=== PATIENT | female | born 1975 | race Hispanic/Latino ===

== ENCOUNTER 2018-05-22 18:08 | Emergency (ER) | payer SELFPAY ==
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
[2018-05-22 19:33] LABS: Urine Blood 1+ (NEG); Urine Glucose NEGATIVE (NEG); Urine Protein NEGATIVE (NEG); Urine Specific Gravity <1.005 (1.005-1.030); Urine pH 5.5 (5.0-7.0)
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
[2018-05-22] MEDS ORDERED: CYCLOBENZAPRINE 10 MG TAB ONE (20:02)
[2018-05-22] MEDS ORDERED: HYDROCODONE/APAP 5/325 MG TAB ONE (20:02)
[2018-05-22] MEDS ORDERED: KETOROLAC 30 MG/ML INJ ONE (20:02)
== END 2018-05-22 20:11 | disposition home or self-care (01) ==
LOC: ER 18:08
DX: S39.012A Strain of muscle, fascia and tendon of lower back, initial encounter (principal); S16.1XXA Strain of muscle, fascia and tendon at neck level, initial encounter; V43.53XA Car driver injured in collision with pick-up truck in traffic accident, initial encounter; Y93.9 Activity, unspecified; Y92.410 Unspecified street and highway as the place of occurrence of the external cause
CPT/HCPCS: 36415; 72125; 81003; 84703; 96372; 99284

== ENCOUNTER 2023-05-27 04:20 | Emergency (ER) | payer SELFPAY ==
[2023-05-27 04:39] LABS: Absolute Lymphocytes (CBC) 1.8 K/uL (0.7-4.9); Hematocrit 37.3 % (36.0-45.0); Lymphocytes % 24.2 % (15.3-44.8); MCV 94.1 fL (80-100); MPV 9.8 fL (7.6-11.3); Platelets 260 thou/uL (152-406); RBC Red Blood Cell Count 3.96 M/uL (3.86-4.86)
[2023-05-27 04:46] LABS: Protime INR 0.99
[2023-05-27 05:02] LABS: ALT/SGPT 23 U/L (13-56); AST/SGOT 15 U/L (15-37); Albumin 3.6 g/dL (3.4-5.0); Alkaline Phosphatase 47 U/L (45-117); BUN Blood Urea Nitrogen 10 mg/dL (7-18); Bicarbonate 19 mEq/L (21-32); Bilirubin Total 0.3 mg/dL (0.2-1.0); Glomerular Filtration Rate 113 ml/min (=/>90); Glucose Level 226 mg/dL (74-106); Potassium 3.6 mEq/L (3.5-5.1); Protein, Total 7.7 g/dL (6.4-8.2); Sodium Level 141 mEq/L (136-145)
[2023-05-27 05:03] LABS: Bilirubin Direct < 0.1 mg/dL (0-0.2); Bilirubin Indirect, Calculated ND mg/dL (0.2-0.8)
[2023-05-27 05:07] LABS: Specific Gravity 1.009 (1.005-1.030); Urine Bilirubin NEGATIVE (Negative); Urine Blood Negative (Negative); Urine Clarity Clear (Clear); Urine Color Colorless (Yellow); Urine Glucose 3+ (Negative); Urine Protein NEGATIVE (Negative); Urine Urobilinogen Normal (Normal)
[2023-05-27 05:08] LABS: Specific Gravity 1.009 (1.005-1.030)
[2023-05-27 05:23] LABS: Barbiturates NEGATIVE (NEGATIVE); Benzodiazepines NEGATIVE (NEGATIVE); Cocaine NEGATIVE (NEGATIVE); METHAMPHETAM NEGATIVE (NEGATIVE); Methadone NEGATIVE (NEGATIVE); Opiates NEGATIVE (NEGATIVE); Phencyclidine NEGATIVE (NEGATIVE); THC Cannibis NEGATIVE (NEGATIVE)
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
--- NOTE | 2023-05-27 05:41 | EDPHYS ---
Physician Documentation [facility] Name: Juanita Leon Age: 48 yrs Sex: Female : 1975 Arrival Date: 05/27/2023 Time: 04:20 Bed 3 Private MD: ED Physician Usman Aldrich HPI: 05/27 04:28 This 41 yrs old Female presents to ER via EMS with complaints of Intoxication. rt 04:28 History limited due to patient with altered mental status. Patient reportedly consumes rt large amount of alcohol this evening. Patient reported loss consciousness, but did not sustain any head trauma. EMS was called, after many nitrate stick, the patient was able to nod yes or no to questioning. No further history could be obtained, symptoms are moderate in severity, no other aggravating or alleviating factors.. Historical: - Allergies: 05:09 No Known Allergies; rv - PMHx: 05:09 Diabetes mellitus; Asthma; Hypercholesterolemia; rv - PSHx: 04:25 Unable to Obtain; rv - Immunization history:: Adult Immunizations unknown. - Social history:: Smoking status: unknown. - Unable to obtain history due to: altered mental status. ROS: 04:28 Unable to obtain ROS due to altered mental status, rt Exam: 04:28 Head/Face: Normocephalic, atraumatic. Chest/axilla: Normal chest wall appearance and rt motion. Nontender with no deformity. No lesions are appreciated. Cardiovascular: Regular rate and rhythm with a normal S1 and S2. No gallops, murmurs, or rubs. Normal PMI, no JVD. No pulse deficits. Respiratory: Lungs have equal breath sounds bilaterally, clear to auscultation and percussion. No rales, rhonchi or wheezes noted. No increased work of breathing, no retractions or nasal flaring. Abdomen/GI: Soft, non-tender, with normal bowel sounds. No distension or tympany. No guarding or rebound. No evidence of tenderness throughout. Skin: Warm, dry with normal turgor. Normal color with no rashes, no lesions, and no evidence of cellulitis. MS/ Extremity: Pulses equal, no cyanosis. Neurovascular intact. Full, normal range of motion. 04:28 Neuro: Mumbling, incoherent speech, moves all 4 extremities equally, no obvious cranial nerve deficits, 04:54 ECG was reviewed by the Attending Physician. rt Vital Signs: 04:23 BP 150 / 87; Pulse 122; Resp 16; Temp 98.2; Pulse Ox 96% ; Weight 61.5 kg; rv 05:10 BP 124 / 75; Pulse 101; Resp 15; Pulse Ox 99% ; rv Bozman Coma Score: 05:11 Eye Response: spontaneous(4). Motor Response: obeys commands(6). Verbal Response: rv oriented(5). Total: 15. MDM: 04:22 Patient medically screened. rt 05:41 Differential Diagnosis Alcohol intoxication toxic ingestion, intracranial hemorrhage. rt Data reviewed: vital signs, nurses notes, lab test result(s), EKG, radiologic studies. I considered the following discharge prescriptions or medication management in the emergency department Medications were administered in the Emergency Department. See MAR. Independent interpretation of the following test(s) in the Emergency Department CT Scan: My interpretation is No hemorrhage seen on interpretation of CT scan images. Care significantly affected by the following chronic conditions: Diabetes. Counseling: I had a detailed discussion with the patient and/or guardian regarding the historical points, exam findings, and any diagnostic results supporting the discharge/admit diagnosis, lab results, radiology results, the need for outpatient follow up, to return to the emergency department if symptoms worsen or persist or if there are any questions or concerns that arise at home. Response to treatment: the patient's symptoms have markedly improved after treatment. 05/27 04:22 Order name: Acetaminophen; Complete Time: 05:12 rt 05/27 04:22 Order name: Basic Metabolic Panel; Complete Time: 05:12 rt 05/27 04:22 Order name: CBC with Diff; Complete Time: 05:12 rt 05/27 04:22 Order name: ETOH Level; Complete Time: 05:12 rt 05/27 04:22 Order name: Hepatic Function; Complete Time: 05:12 rt 05/27 04:22 Order name: PT-INR; Complete Time: 05:12 rt 05/27 04:22 Order name: Test, Urine; Complete Time: 05:12 rt 05/27 04:22 Order name: Ptt, Activated; Complete Time: 05:12 rt 05/27 04:22 Order name: Salicylate; Complete Time: 05:12 rt 05/27 04:22 Order name: Urinalysis w/ reflexes; Complete Time: 05:12 rt 11/04 04:22 Order name: Urine Drug Screen; Complete Time: 05:25 rt 05/27 04:22 Order name: CT Head Brain wo Cont rt 05/27 04:22 Order name: EKG; Complete Time: 04:23 rt 05/27 04:22 Order name: EKG - Nurse/Tech; Complete Time: 04:47 rt 05/27 04:22 Order name: IV Saline Lock; Complete Time: 04:48 rt 05/27 04:22 Order name: Labs collected and sent; Complete Time: 04:48 rt 05/27 04:22 Order name: Suicide Screening ([place]); Complete Time: 04:48 rt EC:54 Rate is 109 beats/min. Rhythm is regular, Normal Sinus Rhythm with No ectopy. QRS [place] rt is Normal. IL interval is normal. QRS interval is normal. QT interval is normal. No Q waves. T waves are Normal. No ST changes noted. Interpreted by me. Administered Medications: No medications were administered Disposition Summary: 05/27/23 05:41 Discharge Ordered Notes: Location: Home rt Problem: new rt Symptoms: have improved rt Condition: Stable rt Diagnosis - Alcohol abuse with intoxication rt Followup: rt - With: Private Physician - When: 2 - 3 days - Reason: Discharge Instructions: - Discharge Summary Sheet rt - Alcohol Intoxication rt Forms: - Medication Reconciliation Form rt - Thank You Letter rt - Antibiotic Education rt - Prescription Opioid Use rt - Patient Portal Instructions rt - Leadership Thank You Letter rt Signatures: Dispatcher [employer] Moe Mei RN RN rv Usman Aldrich MD MD rt Corrections: (The following items were deleted from the chart) 05:10 04:25 PMHx: Unable to Obtain; sanjay grace
[2023-05-27 06:01] VITALS: TEMP 98.2
[2023-05-27 06:02] VITALS: BP 124/75; O2SAT 99
--- NOTE | 2023-05-27 11:33 | RAD REPORT ---
EXAM DESCRIPTION: CT - Head Brain Wo Cont - 05/27/2023 6:27 am CLINICAL HISTORY: 48 years Female ams COMPARISON: None TECHNIQUE: Noncontrast CT head. This exam was performed according to our departmental dose-optimization program, which includes autom ated exposure control, adjustment of the mA and/or kV according to patient size and/or use of iterati ve reconstruction technique.. FINDINGS: Parenchyma: No acute hemorrhage, large territorial infarction, or mass effect. Ventricles and extra-axial spaces: Appropriate for age. Visualized paranasal sinuses: Clear. Mastoid air cells: Clear. Bones: No acute focal abnormality. Additional comment: None. IMPRESSION: No acute intracranial findings. Electronically signed by: Macie Castillo MD 05/27/2023 5:07 AM CDT Due to temporary technical issues with the PACS/Fluency reporting system, reports are being signed by the in house radiologists without review as a courtesy to insure prompt reporting. The interpreting radiologist is fully responsible for the content of the report.
--- NOTE | 2023-06-03 14:42 | EKG ---
Test Date: 2023-05-27 Test Time: 04:37:42 Project Development Coordinator: RV MEASUREMENT RESULTS: Intervals: Rate: 109 IN: 148 QRSD: 74 QT: 310 QTc: 417 Vera: P: 56 IN: 148 QRS: 26 T: 33 INTERPRETIVE STATEMENTS: Sinus tachycardia Otherwise normal ECG No previous ECG available for comparison Electronically Signed On 06-03-23 14:20:43 CLOTH BLEACHING SUPERVISOR by Tee To
== END 2023-05-27 05:55 | disposition home or self-care (01) ==
LOC: EDBD 04:20 → ER 04:20 → MERGE 04:20 → ER 05:55
DX: F10.129 Alcohol abuse with intoxication, unspecified (principal); E11.9 Type 2 diabetes mellitus without complications
CPT/HCPCS: 36415; 70450; 80048; 80076; 80143; 80179; 80307; 81003; 81025; 82077; 85025; 85610; 85730; 93005; 99283

== ENCOUNTER 2024-10-06 03:01 | Emergency (ER) | payer OTHER ==
--- OUTSIDE RECORDS SUMMARY | 2024-10-06 03:08 | XMS REPORT | Continuity of Care Document ---
Author Name Unknown Address [address] [facility] [place] [address] Organization [facility] Address [address] [facility] [place] [address] Care Team Providers Care Double Backer Name Role Phone Celia Ferraro Primary Care Physician ANALISA LEWIS Attending Clinician Unavail able nAalisa Gaffney Attending Clinician + Doctor Unassigned, Geary Attending Clinician U navailable COCO TRINIDAD Attending Clinician Unavailable Coco Trinidad MD Attending Clinician [phone] Mary Lou Muller MD Attending Clinician [phone] Attending Clinician Unavailable CONSUELO STREETER Attending Clinician Unavailable Pgy2 Attending Clinician Unavailable Pgy3 Attending Clinician Unavailable BRYAN PALMER Attending Clinician Unavailable Bryan Palmer MD Attending Clinician [phone] ANUJ TRAN Attending Clinician Unavailable Anuj Saavedra Attending Clinician [phone] SKINNY GILES Attending Clinician Unavailable Skinny Giles MD Attending Clinician [phone] Traci Donis MD Attending Clinician [phone] HEAVEN INMAN Attending Clinician Unavailable Heaven Inman MD Attending Clinician [phone] PALMA RAM Attending Clinician UnavailAdamaris Harman Attending Clinician [phone] Palma Ram DO Attending Clinician [phone] Roger Zapata DO Attending Clinician [phone] ROGER ZAPATA Attending Clinician Unavailable BRYAN PALMER Admitting Clinician Unavailable Bryan Palmer MD Admitting Clinician [phone] ANUJ TRAN Admitting Clinician Unavailable ADAMARIS MARTINEZ Admitting Clinician Unavailable ROGER ZAPATA Admitting Clinician Unavailable Payers Payer Name Policy Type Policy Number Effective Date Expirati on Date Source [employer] 0-100% [id number] 2022 00:00:00 2023 00:00:00 Problems Condition Name Condition Details Condition Category Status Onset Date Resolution Date Last Treatment Date Treating Clinician Comments Source Cervical Papanicola ou smear negative within last 12 months Cervical Papanicola ou smear negative within last 12 months Disease Active 2021-07 00:00: 00 Overview: Formattin g of this note might be different from the original. 08/2020, nil pap see scanned records [facility] Anemia of mother in , antepartum Anemia of mother in , antepartum Disease Active 2021-07 00:00: 00 [facility] Anemia of mother in , antepartum Anemia of mother in , antepartum Disease Active 2021-07 00:00: 00 [facility] Other general counseling and advice for contracept elvis management Other general counseling and advice for contracept elvis management Disease Active 2021-07 00:00: 00 [facility] Over weight Over weight Disease Active 2021-07 00:00: 00 [facility] Fibroid, uterine Fibroid, uterine Disease Active 2021-07 00:00: 00 [facility] No known active problems No known active problems Disease [facility] Allergies, Adverse Reactions, Alerts Allergy Name Allergy Type Status Severity Reaction(s) Onset Date Inactive Date Treating Clinician Comments Source NO KNOWN ALLERGIE S Drug Class Active [facility] Social History Social Habit Start Date Stop Date Quantity Comments Source Gender identity [facility] 2023-02-28 00:00:00 2023-02-28 00:00:00 Ex-drinker (finding) [facility] Exposure to SARS-CoV-2 (event) 2022-09-18 00:00:00 2022-09-28 13:11:00 Not sure [facility] History of Social function 2022-09-14 00:00:00 2022-09-14 00:00:00 [facility] Tobacco use and exposure 2022-06-28 00:00:00 2022-06-28 00:00:00 Smokeless tobacco non-user [facility] Sex Assigned At 1975 00:00:00 1975 00:00:00 [facility] Smoking Status Start Date Stop Date Source Tobacco smoking consumption unknown [facility] Never smoked tobacco [facility] Medications Ordered Medication Name Filled Medication Name Start Date Stop Date Current Medication? Ordering Clinician Indication Dosage Frequency Signature (SIG) Comments Components Source metformin 1,000 mg tablet 03-01 00:00: 00 Yes 1mg [facility] atorvastati n 20 mg tablet 03-01 00:00: 00 Yes 1mg [facility] metformin 1,000 mg tablet 10-08 00:00: 00 Yes 1mg [facility] atorvastati n 20 mg tablet 10-08 00:00: 00 Yes 1mg [facility] TAKE 1 TABLET EVERY 8 HOURS WITH FOOD NEEDED. 2- 00:00: 00 10-19 00:00 :00 No 800 [facility] TAKE 1 TABLET AT BEDTIME. - 00:00: 00 Yes 20 [facility] TAKE 1 TABLET DAILY. 2- 00:00: 00 Yes [id number] [facility] TAKE 1 TABLET BY MOUTH EVERY 12 HOURS 1-31 00:00: 00 Yes [facility] TAKE 1 TABLET EVERY 12 HOURS DAILY. 1-04 00:00: 00 10-19 00:00 :00 No 1000 [facility] TAKE 1 TABLET AT BEDTIME. 9- 00:00: 00 Yes 20 [facility] TAKE 1 TABLET EVERY 12 HOURS DAILY. - 00:00: 00 Yes 1000 [facility] TAKE 1 TABLET EVERY 12 HOURS DAILY. 9-08 00:00: 00 10-19 00:00 :00 No 1000 [facility] TAKE 1 TABLET EVERY 12 HOURS DAILY. 8-15 00:00: 00 10-19 00:00 :00 No 1000 [facility] magnesium oxide (MAG-OX 400) tablet 800 mg 02-28 08:00: 00 02-28 07:13 :00 No 800mg 800 mg, Oral, ONCE NOW, 1 dose, On Mon02/28/23 at 0300, BEATRIS [facility] TAKE 1 TABLET EVERY 12 HOURS DAILY. 01-27 00:00: 00 10-19 00:00 :00 No 1000 [facility] TAKE 1 TABLET DAILY. 18 00:00: 00 Yes [id number] [facility] TAKE 1 TABLET AT BEDTIME. 18 00:00: 00 10-19 00:00 :00 No 20 [facility] TAKE 1 TABLET EVERY 12 HOURS DAILY. 10-19 00:00: 00 10-19 00:00 :00 No 1000 [facility] lactated ringers IV infusion 1,000 mL 09-14 22:30: 00 Yes 1000mL at 75 mL/hr, 1,000 mL, IV Infusion, CONTINUOUS , Starting on Mon09/14/22 at 1630, Until Discontinu ed, Routine, PACU [facility] ibuprofen (IBU) tablet 800 mg 09-14 22:28: 25 Yes 800mg 800 mg, Oral, PRN, 1 dose, Starting on Mon09/14/22 at 1628, Until Discontinu ed, Routine, Pain (scale 4-6), DSU Recovery [facility] acetaminoph en (TYLENOL) tablet 650 mg 09-14 22:28: 23 Yes 650mg 650 mg, Oral, PRN, 1 dose, Starting on Mon09/14/22 at 1628, Until Discontinu ed, Routine, Pain (scale 1-3), DSU Recovery [facility] HYDROmorphO ne (DILAUDID) injection 0.2 mg 09-14 22:26: 10 Yes .2mg 0.2 mg, Slow IV Push, Q5MIN PRN, 10 doses, Starting on Mon09/14/22 at 1626, Until Discontinu ed, Routine, Pain (scale 7-10), PACU
Us e approved by (Faculty): PACU USE -ANESTHESI A SERVICE-HY DROMORPHON E INJECTIONS [facility] FENTanyl PF (SUBLIMAZE (PF)) injection 25 mcg 09-14 22:26: 10 Yes 25ug 25 mcg, Slow IV Push, Q5MIN PRN, 4 doses, Starting on Mon09/14/22 at 1626, Until Discontinu ed, Routine, Pain (scale 4-6), PACU [facility] proMETHazin e (PHENERGAN) 12.5 mg in NS 50 mL IV piggyback (CNR) 09-14 22:26: 10 Yes 12.5mg 12.5 mg, IV Piggyback, at 200 mL/hr Administer over 15 Minutes, PRN, 1 dose, Starting on Mon09/14/22 at 1626, Until Discontinu ed, Routine, Nausea and Vomiting (N/V), PACU [facility] norethindro ne-ethin. estradiol (PIRMELLA ORAL) 09-14 16:31: 13 09-14 00:00 :00 No Take by mouth. [facility] metFORMIN 1,000 mg tablet 09-14 16:31: 13 09-14 00:00 :00 No 1000mg Take 1,000 mg by mouth 2 (two) times daily with meals. [facility] ibuprofen 600 mg tablet 09-14 00:00: 00 Yes [id number] 600mg Take 1 tablet by mouth every 6 (six) hours as needed for Pain (scale 1-3) or Pain (scale 4-6). [facility] acetaminoph en (TYLENOL) 325 mg tablet 09-14 00:00: 00 09-15 05:59 :00 No [id number] 650mg Take 2 tablets by mouth every 6 (six) hours as needed for Pain (scale 4-6) or Pain (scale 1-3). [facility] norethindro ne-ethin. estradiol (PIRMELLA ORAL) 09-13 11:39: 26 Yes Take by mouth. [facility] metFORMIN 1,000 mg tablet 09-13 11:39: 26 Yes 1000mg Take 1,000 mg by mouth 2 (two) times daily with meals. [facility] iopamidol (ISOVUE 370-500 mL) injection 74 mL 09-07 02:45: 00 09-07 02:45 :00 No [id number] 74mL 74 mL, Intravenou s, ONCE, 1 dose, On Mon09/06/22 at 2045, Routine [facility] NaCl 0.9% (NS) bolus infusion 2,000 mL 09-07 01:00: 00 09-07 04:30 :00 No 2000mL at 999 mL/hr, 2,000 mL, IV Infusion, ONCE, 1 dose, On Mon09/06/22 at 1900, [facility] ondansetron (ZOFRAN (PF)) injection 4 mg 09-07 00:11: 00 09-07 00:17 :00 No 4mg 4 mg, Slow IV Push, ONCE, 1 dose, On Mon09/06/22 at 1815, [facility] DISSOLVE 1 TABLET ON THE TONGUE EVERY 8 HOURS NEEDED FOR NAUSEA OR VOMITING 09-07 00:00: 00 Yes [facility] ondansetron 4 mg disintegrat ing tablet 09-07 00:00: 00 09-14 00:00 :00 No [id number] 4mg Take 1 tablet by mouth every 8 (eight) hours as needed for Nausea and Vomiting (N/V). [facility] ferrous sulfate 325 mg (65 mg iron) tablet 2021-07 00:00: 00 09-14 00:00 :00 No [id number] 325mg Take 1 tablet by mouth 2 (two) times daily. [facility] ascorbic acid, vitamin C, 500 mg tablet 2021-07 00:00: 09-14 00:00 :00 No [id number] 500mg Take 1 tablet by mouth 3 (three) times daily. [facility] metFORMIN 1,000 mg tablet 2021-07 14:07: 40 Yes 1000mg Take 1,000 mg by mouth 2 (two) times daily with meals. [facility] norethindro ne-ethin. estradiol (PIRMELLA ORAL) 2021-07 14:05: 01 Yes Take by mouth. [facility] metroNIDAZO LE 500 mg tablet 2021-07 00:00: 00 Yes [id number] 500mg Take 1 tablet by mouth 2 (two) times daily. [facility] norethindro ne-ethinyl estradiol 1-35 mg-mcg per tablet 2021-07 00:00: 00 09-14 00:00 :00 No [id number] 1{tbl} Take 1 tablet by mouth daily. [facility] NaCl 0.9% (NS) bolus infusion 1,000 mL 2021-07 22:15: 00 05-19 23:00 :00 No 1000mL at 999 mL/hr, 1,000 mL, IV Infusion, ONCE, 1 dose, On Lyla 05/19/22 at 1715, BEATRIS [facility] ferrous sulfate 325 mg (65 mg iron) tablet 2021-07 00:00: 00 Yes [id number] 325mg Take 1 tablet by mouth 3 (three) times daily with meals. [facility] TAKE 1 TABLET BY MOUTH EVERY DAY IN THE EVENING WITH DINNER 2021-07 00:00: 00 Yes [facility] TAKE 1 CAPSULE BY MOUTH FOUR TIMES DAILY FOR 5 DAYS 2021-07 00:00: 00 Yes [facility] TAKE 1 TABLET BY MOUTH EVERY 4 TO 6 HOURS NEEDED FOR PAIN 2021-07 00:00: 00 Yes [facility] Dose Unknown 2021-07 00:00: 00 10-19 00:00 :00 No [facility] nitrofurant oin (MACRODANTI N) 100 mg capsule 2021-07 00:00: 00 05-25 04:59 :00 No [id number] 100mg Take 1 capsule by mouth 4 (four) times daily for [address] [facility] TAKE 1 TABLET BY MOUTH TODAY AND 1 TABLET 24 HOURS LATER 12-30 00:00: 00 Yes [facility] AMOXICILLIN 500MG TABLETS 12-27 00:00: 00 Yes [facility] TAKE 1 TABLET BY MOUTH EVERY 8 HOURS NEEDED FOR PAIN. DO NOT EXCEED 4 TABLET A DAY 12-27 00:00: 00 Yes [facility] TAKE 1 TABLET BY MOUTH TWICE DAILY 12-01 00:00: 00 Yes [facility] Vital Signs Vital Name Observation Time Observation Value Comments S ource Systolic blood pressure 2023-02-28 07:00:00 126 mm[Hg] [facility] Diastolic blood pressure 2023-02-28 07:00:00 82 mm[Hg] [facility] Heart rate 2023-02-28 07:00:00 76 /min [facility] Body temperature 2023-02-28 07:00:00 36.11 Jill [facility] Respiratory rate 2023-02-28 07:00:00 17 /min [facility] Oxygen saturation in Arterial blood by Pulse oximetry 2023-02-28 07:00:00 98 /min [facility] Body height 2023-02-28 04:40:00 154.9 cm [facility] Body weight 2023-02-28 04:40:00 58.968 kg [facility] BMI 2023-02-28 04:40:00 24.56 kg/m2 [facility] Systolic blood pressure 2022-09-28 19:10:00 123 mm[Hg] [facility] Diastolic blood pressure 2022-09-28 19:10:00 73 mm[Hg] [facility] Heart rate 2022-09-28 19:10:00 86 /min [facility] Body temperature 2022-09-28 19:10:00 36.22 Jill [facility] Respiratory rate 2022-09-28 19:10:00 18 /min [facility] Body height 2022-09-28 19:10:00 154.9 cm [facility] Body weight 2022-09-28 19:10:00 62.279 kg [facility] BMI 2022-09-28 19:10:00 25.94 kg/m2 [facility] Systolic blood pressure 2022-09-14 23:15:00 154 mm[Hg] [facility] Diastolic blood pressure 2022-09-14 23:15:00 100 mm[Hg] [facility] Respiratory rate 2022-09-14 23:15:00 29 /min [facility] Oxygen saturation in Arterial blood by Pulse oximetry 2022-09-14 23:15:00 100 /min [facility] Heart rate 2022-09-14 22:23:00 79 /min [facility] Body temperature 2022-09-14 22:23:00 36.28 Jill [facility] Body height 2022-09-14 18:52:00 154.9 cm [facility] Body weight 2022-09-14 18:52:00 63.7 kg [facility] BMI 2022-09-14 18:52:00 26.53 kg/m2 [facility] Systolic blood pressure 2022-09-14 23:15:00 154 mm[Hg] [facility] Diastolic blood pressure 2022-09-14 23:15:00 100 mm[Hg] [facility] Respiratory rate 2022-09-14 23:15:00 29 /min [facility] Oxygen saturation in Arterial blood by Pulse oximetry 2022-09-14 23:15:00 100 /min [facility] Heart rate 2022-09-14 22:23:00 79 /min Unive [facility] Body temperature 2022-09-14 22:23:00 36.28 Jill [facility] Body height 2022-09-14 18:52:00 154.9 cm [facility] Body weight 2022-09-14 18:52:00 63.7 kg [facility] BMI 2022-09-14 18:52:00 26.53 kg/m2 [facility] Systolic blood pressure 2022-09-07 06:02:00 98 mm[Hg] [facility] Diastolic blood pressure 2022-09-07 06:02:00 63 mm[Hg] [facility] Heart rate 2022-09-07 06:02:00 95 /min Unive [facility] Respiratory rate 2022-09-07 06:02:00 16 /min [facility] Oxygen saturation in Arterial blood by Pulse oximetry 2022-09-07 06:02:00 98 /min [facility] Body temperature 2022-09-06 23:42:00 36.89 Jill [facility] Body height 2022-09-06 23:42:00 157.5 cm [facility] Body weight 2022-09-06 23:42:00 60.782 kg [facility] BMI 2022-09-06 23:42:00 24.51 kg/m2 [facility] Systolic blood pressure 2022-08-05 19:08:00 117 mm[Hg] [facility] Diastolic blood pressure 2022-08-05 19:08:00 77 mm[Hg] [facility] Heart rate 2022-08-05 19:08:00 89 /min Un[facility] Body temperature 2022-08-05 19:08:00 35.44 Jill [facility] Respiratory rate 2022-08-05 19:08:00 18 /min [facility] Body height 2022-08-05 19:08:00 154.9 cm [facility] 2022-08-05 19:08:00 62.687 kg [facility] BMI 2022-08-05 19:08:00 26.11 kg/m2 [facility] Systolic blood pressure 2022-07-13 23:01:00 117 mm[Hg] [facility] Diastolic blood pressure 2022-07-13 23:01:00 64 mm[Hg] [facility] Heart rate 2022-07-13 23:01:00 88 /min Unive [facility] Respiratory rate 2022-07-13 23:01:00 17 /min [facility] Oxygen saturation in Arterial blood by Pulse oximetry 2022-07-13 23:01:00 99 /min [facility] Body temperature 2022-07-13 20:40:00 36.72 Jill [facility] Body height 2022-07-13 20:40:00 167.6 cm [facility] Body weight 2022-07-13 20:40:00 62.143 kg [facility] BMI 2022-07-13 20:40:00 22.11 kg/m2 [facility] Systolic blood pressure 2022-06-28 19:58:00 129 mm[Hg] [facility] Diastolic blood pressure 2022-06-28 19:58:00 78 mm[Hg] [facility] Heart rate 2022-06-28 19:58:00 83 /min Unive [facility] Body temperature 2022-06-28 19:58:00 36.28 Jill [facility] Respiratory rate 2022-06-28 19:58:00 17 /min [facility] Body height 2022-06-28 19:58:00 154.9 cm [facility] Body weight 2022-06-28 19:58:00 62.46 kg [facility] BMI 2022-06-28 19:58:00 26.02 kg/m2 [facility] Oxygen saturation in Arterial blood by Pulse oximetry 2022-05-25 03:00:00 99 /min [facility] Systolic blood pressure 2022-05-25 03:00:00 119 mm[Hg] [facility] Diastolic blood pressure 2022-05-25 03:00:00 70 mm[Hg] [place] [facility] Heart rate 2022-05-25 03:00:00 86 /min Unive [facility] Respiratory rate 2022-05-25 03:00:00 11 /min [facility] Body temperature 2022-05-25 02:49:00 37.17 Jill [facility] Body height 2022-05-24 21:56:00 154.9 cm [facility] Body weight 2022-05-24 21:56:00 61.236 kg [facility] BMI 2022-05-24 21:56:00 25.51 kg/m2 [facility] Systolic blood pressure 2022-05-20 01:45:00 106 mm[Hg] [facility] Diastolic blood pressure 2022-05-20 01:45:00 61 mm[Hg] [facility] Heart rate 2022-05-20 01:45:00 94 /min [facility] Body temperature 2022-05-20 01:45:00 37.67 Jill [facility] Respiratory rate 2022-05-20 01:45:00 12 /min [facility] Oxygen saturation in Arterial blood by Pulse oximetry 2022-05-20 01:45:00 100 /min [facility] Body height 2022-05-19 21:08:00 154.9 cm [facility] Body weight 2022-05-19 21:08:00 61.236 kg [facility] BMI 2022-05-19 21:08:00 25.51 kg/m2 [facility] Body Temperature 2024-03-01 11:46:00 98.20 degrees [facility] Heart Rate 2024-03-01 11:46:00 75.00 /min Cindy en [facility] Respiratory Rate 2024-03-01 11:46:00 18.00 /min [facility] BP Systolic 2024-03-01 11:46:00 111 mm[Hg] Step hen F [facility] BP Diastolic 2024-03-01 11:46:00 69 mm[Hg] Aleksandar phen F [facility] Weight Measured 2024-03-01 11:46:00 129.00 pounds [facility] Height Measured 2024-03-01 11:46:00 61.00 inches Hang [facility] BP Systolic 2023-10-09 17:34:00 120 mm[Hg] Step hen F Mason BP Diastolic 2023-10-09 17:34:00 77 mm[Hg] Aleksandar phen [facility] Weight Measured 2023-10-09 17:34:00 128.80 pounds Hang [facility] Height Measured 2023-10-09 17:34:00 61.00 inches [facility] Body Temperature 2023-10-09 17:34:00 98.20 degrees [facility] Heart Rate 2023-10-09 17:34:00 79.00 /min Cindy en F [facility] Respiratory Rate 2023-10-09 17:34:00 17.00 /min Hang F Mason BP Systolic 2023-08-24 17:11:00 132 mm[Hg] Step hen F Masno BP Diastolic 2023-08-24 17:11:00 81 mm[Hg] Aleksandar phen F Mason Weight Measured 2023-08-24 17:11:00 130.40 pounds Hang [facility] Height Measured 2023-08-24 17:11:00 61.00 inches [facility] Body Temperature 2023-08-24 17:11:00 98.40 degrees [facility] Heart Rate 2023-08-24 17:11:00 85.00 /min Cindy en F [facility] Respiratory Rate 2023-08-24 17:11:00 Hang F Mason BP Systolic 2023-04-05 09:04:00 Step hen F Mason BP Diastolic 2023-04-05 09:04:00 Aleksandar phen F Mason Weight Measured 2023-04-05 09:04:00 130.60 pounds Hang [facility] Height Measured 2023-04-05 09:04:00 61.00 inches [facility] Body Temperature 2023-04-05 09:04:00 Hang [facility] Heart Rate 2023-04-05 09:04:00 Cindy en F Mason Respiratory Rate 2023-04-05 09:04:00 Hang F Mason BP Systolic 2023-04-05 08:41:00 118 mm[Hg] Step hen F Mason BP Diastolic 2023-04-05 08:41:00 78 mm[Hg] Aleksandar phen F Mason Weight Measured 2023-04-05 08:41:00 130.60 pounds [facility] Height Measured 2023-04-05 08:41:00 61.00 inches [facility] Body Temperature 2023-04-05 08:41:00 97.70 degrees [facility] Heart Rate 2023-04-05 08:41:00 78.00 /min Cindy en F [facility] Respiratory Rate 2023-04-05 08:41:00 Hang F Mason BP Systolic 2022-05-26 11:35:00 98 mm[Hg] Step hen F Mason BP Diastolic 2022-05-26 11:35:00 62 mm[Hg] Aleksandar phen F [facility] Weight Measured 2022-05-26 11:35:00 140.80 pounds Hang [facility] Height Measured 2022-05-26 11:35:00 61.00 inches [facility] Body Temperature 2022-05-26 11:35:00 98.30 degrees [facility] Heart Rate 2022-05-26 11:35:00 86.00 /min Cindy en F [facility] Respiratory Rate 2022-05-26 11:35:00 16.00 /min Hang [facility] BP Systolic 2022-05-23 10:58:00 106 mm[Hg] Step hen F Mason BP Diastolic 2022-05-23 10:58:00 72 mm[Hg] Aleksandar phen [facility] Weight Measured 2022-05-23 10:58:00 140.40 pounds Hang [facility] Height Measured 2022-05-23 10:58:00 61.00 inches [facility] Body Temperature 2022-05-23 10:58:00 98.20 degrees Hang [facility] Heart Rate 2022-05-23 10:58:00 94.00 /min Cindy en F Mason Respiratory Rate 2022-05-23 10:58:00 Hang F Mason BP Systolic 2022-05-19 15:05:00 127 mm[Hg] Step hen F Mason BP Diastolic 2022-05-19 15:05:00 91 mm[Hg] Aleksandar phen F [facility] Weight Measured 2022-05-19 15:05:00 137.00 pounds Hang [facility] Height Measured 2022-05-19 15:05:00 61.00 inches [facility] Body Temperature 2022-05-19 15:05:00 98.60 degrees [facility] Heart Rate 2022-05-19 15:05:00 103.00 /min Dejuan Cuevas Respiratory Rate 2022-05-19 15:05:00 [facility] Procedures Procedure Date / Time Performed Performing Clinician Source EXTERNAL PROVIDER RECORDS 2023-06-22 06:01:00 Doctor Unassigned, Geary [facility] EKG-12 LEAD 2023-02-28 07:24:15 Coco Trinidad [facility] MAGNESIUM 2023-02-28 05:35:00 Coco Trinidad [facility] TROPONIN I 2023-02-28 05:35:00 Coco Trinidad [facility] THYROID STIMULATING HORMONE 2023-02-28 05:35:00 Coco Trinidad [facility] COMP. METABOLIC PANEL (06112) 2023-02-28 05:35:00 Coco Trinidad [facility] CBC WITH DIFF 2023-02-28 05:35:00 Coco Trinidad [facility] URINALYSIS 2023-02-28 05:35:00 Coco Trinidad [facility] NOTICE OF PRIVACY PRACTICES 2023-02-28 04:28:23 Doctor Unassigned, [facility]ary [facility] CONSENT/REFUSAL FOR DIAGNOSIS AND TREATMENT 2023-02-28 04:27:50 Doctor Unassigned, [facility] EXTERNAL PROVIDER RECORDS 2023-01-27 05:01:00 Doctor Unassigned, [facility] AUTHORIZATION FOR RELEASE OF PHI 2022-11-16 05:01:00 Doctor Unassigned, [facility]ary [facility] PREPARE PACKED RBC 2022-09-14 23:51:40 Alvaro Barajas [facility] HYSTEROSCOPY WITH DILATATION AND CURETTAGE 2022-09-14 20:03:00 Bryan Palmer [facility] MYOMECTOMY HYSTEROSCOPY 2022-09-14 20:03:00 Contreras Palmer [facility] POCT TEST 2022-09-14 18:59:00 Cecy Jackson [facility] POCT TEST 2022-09-14 18:59:00 Cecy Jackson [facility] HB ABO GROUPING 2022-09-14 18:48:00 [facility] HB ABO GROUPING 2022-09-14 18:48:00 [facility] ASSIGNMENT OF BENEFITS 2022-09-14 18:17:15 Docto r Unassigned, Geary [facility] CBC WITHOUT DIFF 2022-09-07 05:49:00 Anuj Tran [facility] URINALYSIS 2022-09-07 05:49:00 [facility] HB ABO GROUPING 2022-09-07 00:08:00 Ken Laureano [facility] LIPASE 2022-09-07 00:05:00 [facility] TEST, SERUM 2022-09-07 00:05:00 Wilfredo Laureano [facility] TROPONIN I 2022-09-07 00:05:00 Anuj Tran [facility] COMP. METABOLIC PANEL ([id number]) 2022-09-07 00:05:00 Ken Laureano [facility] CBC WITH DIFF 2022-09-07 00:05:00 Ken Laureano [facility] CONSENT/REFUSAL FOR DIAGNOSIS AND TREATMENT 2022-09-06 23:18:33 Doctor Unassigned, [facility] DISCLOSURE AND CONSENT, MEDICAL AND SURGICAL PROCEDURES 2022-08-05 06:01:00 Doctor Unassigned, [facility] DISCLOSURE AND CONSENT, MEDICAL AND SURGICAL PROCEDURES 2022-08-05 06:01:00 Doctor Unassigned, [facility] HB ABO GROUPING 2022-07-13 21:30:[address] [facility] COMP. METABOLIC PANEL ([id number]) 2022-07-13 21:28:00 Heaven Inman [facility] CBC WITH DIFF 2022-07-13 21:28:00 Heaven Inman [facility] PROTHROMBIN TIME / INR 2022-07-13 21:28:00 Claude Inman [facility] ACTIVATED PARTIAL THRMPLAS ENEIDA 2022-07-13 21:28:00 Heaven Inman [facility] CONSENT/REFUSAL FOR DIAGNOSIS AND TREATMENT 2022-07-13 20:30:59 Doctor Unassigned, [facility] EXTERNAL PROVIDER RECORDS 2022-07-07 06:01:00 Doctor Unassigned, [facility] CBC WITH DIFF 2022-06-28 21:19:00 Analisa Lewis [facility] ASSIGNMENT OF BENEFITS 2022-06-28 19:27:17 Docto r Unassigned, [facility] CBC WITHOUT DIFF 2022-05-25 03:23:00 Adamaris Martinez [facility] TRANSFUSE PACKED RBC 2022-05-25 01:14:00 Jeff Martinez [facility] PREPARE PACKED RBC 2022-05-25 01:01:07 Myra Martinez [facility] EKG-12 LEAD 2022-05-25 00:56:31 Adamaris Martinez [facility] US TRANSVAGINAL 2022-05-25 00:01:55 [facility] 2022-05-24 22:33:00 Adamaris Martinez [facility] LIPASE 2022-05-24 22:23:00 Adamaris Martinez [facility] TROPONIN I 2022-05-24 22:23:[address] [address] [facility]. METABOLIC PANEL ([id number]) 2022-05-24 22:23:00 Adamaris Martinez [facility] CBC WITH DIFF 2022-05-24 22:23:00 Adamaris Martinez [facility] PROTHROMBIN TIME / INR 2022-05-24 22:23:00 Leigh Ann Martinez [facility] HB ABO GROUPING 2022-05-24 22:23:00 Adamaris Martinez [facility] N-TERMINAL PRO-BNP 2022-05-24 22:23:00 Myra Martinez [facility] CONSENT/REFUSAL FOR DIAGNOSIS AND TREATMENT 2022-05-24 21:49:28 Doctor Unassigned, [facility] TRANSFUSE PACKED RBC 2022-05-19 23:54:00 Teddy Zapata [facility] PREPARE PACKED RBC 2022-05-19 23:47:45 Roger Zapata [facility] TOTAL IRON BINDING CAPACITY 2022-05-19 23:38:00 Roger Zapata [facility] FERRITIN SERUM 2022-05-19 22:59:00 Roger Zapata [facility] IRON 2022-05-19 22:59:00 Roger Zapata [facility] URINALYSIS 2022-05-19 22:26:00 Roger Zapata [facility] XR CHEST 1 VW 2022-05-19 21:55:02 Roger Zapata [facility] COMP. METABOLIC PANEL ([id number]) 2022-05-19 21:34:00 Roger Zapata [facility] CBC WITH DIFF 2022-05-19 21:34:00 Roger Zapata [facility] PROTHROMBIN TIME / INR 2022-05-19 21:34:00 Denzel Zapata [facility] ACTIVATED PARTIAL THRMPLAS ENEIDA 2022-05-19 21:34:00 Roger Zapata [facility] HB ABO GROUPING 2022-05-19 21:34:00 Roger Zapata [facility] POCT GLUCOSE (AUTOMATED) 2022-05-19 21:09:00 Kimani Zapata [facility] NOTICE OF PRIVACY PRACTICES 2022-05-19 21:04:16 Doctor Unassigned, [facility] Encounters Start Date/Time End Date/Time Encounter Type Admission Type Attending [facility] Care Facility Care Department Encounter ID Source 2024-03-01 11:43:04 2024-03-01 11:43:04 Outpatient SFA SFA [id number] Hang Cuevas 2024-03-01 00:00:00 2024-03-01 00:00:00 Outpatient Visit [facility] [id number] Hang Cuevas 2023-10-18 09:15:00 2023-10-18 09:15:00 Outpatient R ANALISA LEWIS [facility] [id number] [facility] 2023-10-18 08:45:00 2023-10-18 08:45:00 Outpatient R [facility] [id number] [facility] 2023-10-09 17:24:33 2023-10-09 17:24:33 Outpatient SFA [facility] [id number] Hang Cuevas 2023-08-24 17:07:06 2023-08-24 17:07:06 Outpatient SFA [facility] [id number] Hang Cuevas 2023-06-22 00:00:00 2023-06-22 00:00:00 Telephone Analisa Lewis [facility] ..114 350.1.13.10 4.2.7.2.[id number] [facility] 2023-06-22 00:00:00 2023-06-22 00:00:00 Orders Only Doctor Unassigned, Geary [facility] .0.114 350.1.13.10 4.2.7.2.[id number] [facility] 2023-06-21 00:00:00 2023-06-21 00:00:00 Telephone Analisa Lewis [facility] LIFE INSURANCE SALESPERSON [facility] MATERNAL & [facility]ILD [facility] 1.0.114 350.1.13.10 4.2.7.2.[id number] [facility] 2023-06-05 00:00:00 2023-06-05 00:00:00 Telephone Analisa Lewis [facility] LIFE INSURANCE SALESPERSON [facility]ERNAL & [facility] 1.2.840.114 350.1.13.10 4.2.7.2.[id number] [facility] 2023-02-27 23:43:00 2023-02-28 02:45:00 Emergency X COCO TRINIDAD [facility] ERT [id number] [facility] 2023-02-27 23:43:00 2023-02-28 02:45:00 Emergency Coco Trinidad S [facility] 1.2.840.114 350.1.13.10 4.2.7.2.[id number] [facility] 2023-02-27 00:00:00 2023-02-27 00:00:00 Orders Only Doctor Unassigned, Geary [facility] 1.840.114 350.1.13.10 4.2.7.2.[id number] [facility] 2023-01-30 00:00:00 2023-01-30 00:00:00 Telephone Mary Lou Muller [facility] 1.840.114 350.1.13.10 4.2.7.2.[id number] [facility] 2023-01-27 00:00:00 2023-01-27 00:00:00 Telephone Analisa Lewis [facility] LIFE INSURANCE SALESPERSON [facility] 1.840.114 350.1.13.10 4.2.7.2.[id number] [facility] 2023-01-27 00:00:00 2023-01-27 00:00:00 Orders Only Doctor Unassigned, Geary [facility] 1.2840.114 350.1.13.10 4.2.7.2.[id number] [facility] 2022-11-22 07:45:00 2022-11-22 07:45:00 Outpatient R ANALISA LEWIS [facility] [id number] [facility] 2022-11-16 00:00:00 2022-11-16 00:00:00 Orders Only Doctor Unassigned, Geary [facility] 1.2.840.114 350.1.13.10 4.2.7.2.[id number] [facility] 2022-09-28 13:30:00 2022-09-28 15:43:21 Outpatient R CON[address]O STREETER KARREN [facility] [id number] [facility] 2022-09-28 13:30:00 2022-09-28 15:43:21 Office Visit Pgy2 Consuelo Streeter [facility] 1.2.840.114 350.1.13.10 4.2.7.2.[id number] [facility] 2022-09-15 00:00:00 2022-09-15 00:00:00 Telephone Pgy3 [facility] 1.2.840.114 350.1.13.10 4.2.7.2.[id number] [facility] 2022-09-14 12:19:00 2022-09-14 17:44:00 Outpatient R BRYAN PALMER [facility] SUPERVISOR CEREAL [id number] [facility] 2022-09-14 12:19:00 2022-09-14 17:44:00 Hospital Encounter [facility] 1.2.840.114 350.1.13.10 4.2.7.2.[id number] [facility] 2022-09-14 13:45:00 2022-09-14 17:43:00 [facility] 1.2.840.114 350.1.13.10 4.2.7.2.[id number] [facility] 2022-09-14 00:00:00 2022-09-14 00:00:00 Orders Only Doctor Unassigned, Geary [facility] 1.2840.114 350.1.13.10 4.2.7.2.[id number] [facility] 2022-09-06 17:45:00 2022-09-07 01:01:00 Emergency X SAMANTHA TRANMADDY [facility] ERT [id number] [facility] 2022-09-06 17:45:00 2022-09-07 01:01:00 Emergency Samantha Tranmaddy [facility] 1..114 350.1.13.10 4.2.7.2.[id number] [facility] 2022-08-05 13:30:00 2022-08-05 14:34:20 Outpatient R SKINNY GILES [facility] [id number] [facility] 2022-08-05 13:30:00 2022-08-05 14:34:20 Office Visit Pgy3 Skinny Giles [facility] 1..114 350.1.13.10 4.2.7.2.[id number] [facility] 2022-08-05 00:00:00 2022-08-05 00:00:00 Prep For Surgery Traci Donis [facility] 1.0.114 350.1.13.10 4.2.7.2.[id number] [facility] 2022-07-15 00:00:00 2022-07-15 00:00:00 Telephone Analisa Lewis [facility] LIFE INSURANCE SALESPERSON [facility] MATERNAL & [facility] 1.2840.114 350.1.13.10 4.2.7.2.[id number] [facility] 2022-07-13 14:43:00 2022-07-13 17:05:00 Emergency X HEAVEN INMAN [facility] ERT [id number] [facility] 2022-07-13 14:43:00 2022-07-13 17:05:00 Emergency Heaven Inman [facility] 1.2.840.114 350.1.13.10 4.2.7.2.[id number] [facility] 2022-07-07 00:00:00 2022-07-07 00:00:00 Orders Only Doctor Unassigned, Geary [facility] 1.2.840.114 350.1.13.10 4.2.7.2.[id number] [facility] 2022-06-29 00:00:00 2022-06-29 00:00:00 Telephone Analisa Lewis [facility] LIFE INSURANCE SALESPERSON [facility]ILD [facility] 1.2.840.114 350.1.13.10 4.2.7.2.[id number] [facility] 2022-06-29 00:00:00 2022-06-29 00:00:00 Telephone Analisa Lewis [facility] LIFE INSURANCE SALESPERSON [facility] 1.2.840.114 350.1.13.10 4.2.7.2.[id number] [facility] 2022-06-28 13:30:00 2022-06-28 15:19:24 Office Visit Analisa Lewis [facility] LIFE INSURANCE SALESPERSON [facility]ILD [facility] 1.2.840.114 350.1.13.10 4.2.7.2.[id number] [facility] 2022-06-28 13:00:00 2022-06-28 13:39:08 Outpatient R ANALISA LEWIS [facility] [id number] [facility] 2022-06-28 00:00:00 2022-06-28 00:00:00 Orders Only Doctor Unassigned, [facility]ary [facility] 1.2.840.114 350.1.13.10 4.2.7.2.[id number] [facility] 2022-05-24 17:02:00 2022-05-24 23:01:00 Emergency Alida PALMA RAM [facility] ERT [id number] [facility] 2022-05-24 17:02:00 2022-05-24 23:01:00 Emergency Christian AdamarisPalma Ruby [facility] 1.2.840.114 350.1.13.10 4.2.7.2.[id number] [facility] 2022-05-19 16:09:00 2022-05-19 21:08:00 Emergency Roger Zapata [facility] 1.2.840.114 350.1.13.10 4.2.7.2.[id number] [facility] 2022-05-19 16:09:00 2022-05-19 21:08:00 Emergency ROGER SALAS TIMOTHY [facility] ERT [id number] [facility] Results Test Description Test Time Test Comments Results Result Co mments Source CBC W/AUTO DIFF WITH [id number] 04:22:42* Test Item Value Reference Range Interpretation Comme nts WBC (test code = 1001) 6.1 K/UL 3.5-11.0 RBC (test code = 1002) 4.01 M/UL 3.80-5.40 HEMOGLOBIN (test code = 1003) 12.3 G/DL 11.5-15.5 HEMATOCRIT (test code = 1004) 38.3 % 34.0-45.0 MCV (test code = 1005) 95.5 fL 80.0-99.0 MCH (test code = 1006) 30.7 PG 25.0-33.0 MCHC (test code = 1007) 32.1 G/DL 31.0-36.0 RDW (test code = 1038) 11.8 % 11.5-15.0 NEUTROPHILS (test code = 1008) 58.1 % LYMPHOCYTES (test code = 1010) 26.9 % MONOCYTES (test code = 1011) 11.2 % EOSINOPHILS (test code = 1012) 2.3 % BASOPHILS (test code = 1013) 0.8 % IMMATURE GRANULOCYTES (test code = 1036) 0.7 % NUCLEATED RBCS (test code = 1065) 0.0 /100 WBC'S See_Comment [Automated messa ge] The system which generated this result transmitted reference range: 0.0. The reference range was not used to interpret this result as normal/abnormal. PLATELET COUNT (test code = 1015) 267 K/UL 130-400 ABSOLUTE NEUTROPHILS (test code = 1066) 3.51 K/UL 1.50-7.50 ABSOLUTE LYMPHOCYTES (test code = 1067) 1.63 K/UL 1.00-4.00 ABSOLUTE MONOCYTES (test code = 1068) 0.68 K/UL 0.20-1.00 ABSOLUTE EOSINOPHILS (test code = 1040) 0.14 K/UL 0.00-0.50 ABSOLUTE BASOPHILS (test code = 1069) 0.05 K/UL 0.00-0.20 ABS IMMATURE GRANULOCYTES (test code = 1020) 0.04 K/UL 0.00-0.10 ABS NUCLEATED RBCS (test code = 36709) 0.00 K/UL 0.00-0.11 COMPREHENSIVE METABOLIC [id number] 04:02:17* Test Item Value Reference Range Interpretation Comme nts GLUCOSE (test code = 2217) 110 MG/DL 70-99 H BUN (test code = 2208) 10 MG/DL 6-20 CREATININE (test code = 2214) 0.50 MG/DL 0.60-1.30 L eGFR (2020 CKD-EPI) (test code = 66359) 113 ML/MIN/1.73 >60 CALC BUN/CREAT (test code = 2235) 20 RATIO 6-28 SODIUM (test code = 223) 140 MEQ/L 133-146 POTASSIUM (test code = 2228) 4.3 MEQ/L 3.5-5.4 CHLORIDE (test code = 2215) 101 MEQ/L 95-107 CARBON DIOXIDE (test code = 220) 25 MEQ/L 19-31 CALCIUM (test code = 220) 9.8 MG/DL 8.5-10.5 PROTEIN, TOTAL (test code = 222) 7.1 G/DL 6.1-8.3 ALBUMIN (test code = 2201) 4.4 G/DL 3.5-5.2 CALC GLOBULIN (test code = 2240) 2.7 G/DL 1.9-3.7 CALC A/G RATIO (test code = 223) 1.6 RATIO 1.0-2.6 BILIRUBIN, TOTAL (test code = 220) 0.7 MG/DL <=1.2 ALKALINE PHOSPHATASE (test code = 2203) 44 U/L 40-130 AST (test code = 221) 14 U/L 9-40 ALT (test code = 221) 11 U/L 5-40 LIPID [id number] 04:02:17* Test Item Value Reference Range Interpretation Comme nts CHOLESTEROL (test code = 221) 198 MG/DL <200 TRIGLYCERIDES (test code = 2232) 129 MG/DL <150 HDL CHOLESTEROL (test code = 2220) 79 MG/DL >39 CALC LDL CHOL (test code = 223) 96 MG/DL <100 NOTE: CALCULATED LDL IS BASED ON KENNETH-WOLF METHOD WHICHINCLUDES ADJUSTABLE TRIGLYCERIDE:VLDL CHOLESTEROL RATIO.THIS FACTOR VARIES BY MEASURED TRIGLYCERIDE AND NON-HDLCHOLESTEROL CONCENTRATIONS WITH INCREASED CALCULATED LDL SEENIN HIGHER TRIGLYCERIDE OR LOWER NON-HDL SPECIMENS. FOR MOREINFORMATION, SEE CLIENT ANNOUNCEMENT AT [email or web address] RISK RATIO LDL/HDL (test code = 223) 1.22 RATIO <3.22 [id number] 04:02:03* Test Item Value Reference Range Interpretation Comme nts MAGNESIUM (test code = 2225) 1.8 MG/DL 1.6-2.6 UNLESS OTHERWISE INDICATED, ALL TESTING PERFORMED AT [facility] [address] [place] [address] ACID SPLICER: LINDSEY BOWIE M.D. CLIA NUMBER [id number] [place]. [id number] COMPREHENSIVE METABOLIC [id number] 00:00:00* Test Item Value Reference Range Interpretation Comme nts GLUCOSE (test code = 2217) 110 MG/DL BUN (test code = 2208) 10 MG/DL CREATININE (test code = 2214) 0.50 MG/DL eGFR (2020 CKD-EPI) (test code = 65876) 113 ML/MIN/1.73 CALC BUN/CREAT (test code = 2235) 20 RATIO SODIUM (test code = 2231) 140 MEQ/L POTASSIUM (test code = 2228) 4.3 MEQ/L CHLORIDE (test code = 2215) 101 MEQ/L CARBON DIOXIDE (test code = 2206) 25 MEQ/L CALCIUM (test code = 2209) 9.8 MG/DL PROTEIN, TOTAL (test code = 2229) 7.1 G/DL ALBUMIN (test code = 2201) 4.4 G/DL CALC GLOBULIN (test code = 2240) 2.7 G/DL CALC A/G RATIO (test code = 2234) 1.6 RATIO BILIRUBIN, TOTAL (test code = 2207) 0.7 MG/DL ALKALINE PHOSPHATASE (test code = 2204) 44 U/L AST (test code = 2218) 14 U/L ALT (test code = 2219) 11 U/L Hang CuevasLIPID [id number] 00:00:00* Test Item Value Reference Range Interpretation Comme nts CHOLESTEROL (test code = 2210) 198 MG/DL TRIGLYCERIDES (test code = 2232) 129 MG/DL HDL CHOLESTEROL (test code = 2220) 79 MG/DL CALC LDL CHOL (test code = 2237) 96 MG/DL RISK RATIO LDL/HDL (test cod e = 2238) 1.22 RATIO Hang CuevasCBC W/AUTO [id number] 00:00:00* Test Item Value Reference Range Interpretation Comme nts WBC (test code = 1001) 6.1 K/UL RBC (test code = 1002) 4.01 M/UL HEMOGLOBIN (test code = 1003) 12.3 G/DL HEMATOCRIT (test code = 1004) 38.3 % MCV (test code = 1005) 95.5 fL MCH (test code = 1006) 30.7 PG MCHC (test code = 1007) 32.1 G/DL RDW (test code = 1038) 11.8 % NEUTROPHILS (test code = 1008) 58.1 % LYMPHOCYTES (test code = 1010) 26.9 % MONOCYTES (test code = 1011) 11.2 % EOSINOPHILS (test code = 1012) 2.3 % BASOPHILS (test code = 1013) 0.8 % IMMATURE GRANULOCYTES (test code = 1036) 0.7 % NUCLEATED RBCS (test code = 1065) 0.0 /100WBC'S PLATELET COUNT (test code = 1015) 267 K/UL ABSOLUTE NEUTROPHILS (test c ode = 1066) 3.51 K/UL ABSOLUTE LYMPHOCYTES (test c ode = 1067) 1.63 K/UL ABSOLUTE MONOCYTES (test cod e = 1068) 0.68 K/UL ABSOLUTE EOSINOPHILS (test c ode = 1040) 0.14 K/UL ABSOLUTE BASOPHILS (test cod e = 1069) 0.05 K/UL ABS IMMATURE GRANULOCYTES (t est code = 1020) 0.04 K/UL ABS NUCLEATED RBCS (test cod e = 43712) 0.00 K/UL Hang CuevasHEMOGLOBIN [id number] 00:00:00* Test Item Value Reference Range Interpretation Comme nts HEMOGLOBIN A1c (test code = 81850) 6.6 % Hang Lujan [id number] 00:00:00* Test Item Value Reference Range Interpretation Comme nts MAGNESIUM (test code = 2226) 1.8 MG/DL Hang Lujan [id number] 07:12:47* Test Item Value Reference Range Interpretation Comme nts MAGNESIUM (test code = 2226) 1.5 MG/DL 1.6-2.6 L IRON, [id number] 04:47:18* Test Item Value Reference Range Interpretation Comme nts IRON, SERUM (test code = 2222) 96 UG/DL 37-145 COMPREHENSIVE METABOLIC [id number] 04:47:18* Test Item Value Reference Range Interpretation Comme nts GLUCOSE (test code = 2217) 151 MG/DL 70-99 H BUN (test code = 2208) 16 MG/DL 6-20 CREATININE (test code = 2214) 0.44 MG/DL 0.60-1.30 L eGFR (2020 CKD-EPI) (test code = 74506) 118 ML/MIN/1.73 >60 CALC BUN/CREAT (test code = 2235) 36 RATIO 6-28 H SODIUM (test code = 2231) 137 MEQ/L 133-146 POTASSIUM (test code = 2227) 4.6 MEQ/L 3.5-5.4 CHLORIDE (test code = 5) 99 MEQ/L 95-107 CARBON DIOXIDE (test code = 2205) 27 MEQ/L 19-31 CALCIUM (test code = 2208) 10.0 MG/DL 8.5-10.5 PROTEIN, TOTAL (test code = 2228) 7.0 G/DL 6.1-8.3 ALBUMIN (test code = 2200) 4.4 G/DL 3.5-5.2 CALC GLOBULIN (test code = 0) 2.6 G/DL 1.9-3.7 CALC A/G RATIO (test code = 2233) 1.7 RATIO 1.0-2.6 BILIRUBIN, TOTAL (test code = 2206) 0.6 MG/DL See_Comment [Automated me ssage] The system which generated this result transmitted reference range: <=1.2. The reference range was not used to interpret this result as normal/abnormal. ALKALINE PHOSPHATASE (test code = 2203) 38 U/L 40-128 L AST (test code = 2217) 17 U/L 9-40 ALT (test code = 2218) 14 U/L 5-40 LIPID [id number] 04:47:18* Test Item Value Reference Range Interpretation Comme nts CHOLESTEROL (test code = 0) 176 MG/DL <200 TRIGLYCERIDES (test code = 2) 135 MG/DL <150 HDL CHOLESTEROL (test code = 2219) 72 MG/DL >39 CALC LDL CHOL (test code = 2236) 81 MG/DL <100 NOTE: CALCULATED LDL IS BASED ON KENNETH-WOLF METHOD WHICHINCLUDES ADJUSTABLE TRIGLYCERIDE:VLDL CHOLESTEROL RATIO.THIS FACTOR VARIES BY MEASURED TRIGLYCERIDE AND NON-HDLCHOLESTEROL CONCENTRATIONS WITH INCREASED CALCULATED LDL SEENIN HIGHER TRIGLYCERIDE OR LOWER NON-HDL SPECIMENS. FOR MOREINFORMATION, SEE CLIENT ANNOUNCEMENT AT [email or web address] RISK RATIO LDL/HDL (test code = 223) 1.13 RATIO <3.22 HIV 1/2 4TH GEN, RFLX [id number] 04:19:14* Test Item Value Reference Range Interpretation Comme nts HIV 1/2 4TH GEN, RFLX CONF ( test code = 3514) NON-REACTIVE NON-REACTIVE HEPATITIS PANEL, [id number] 04:19:14* Test Item Value Reference Range Interpretation Comme nts HEPATITIS A IgM (test code = 33230) NON-REACTIVE NON-REACTIVE HEPATITIS B CORE IgM (test code = 4644) NON-REACTIVE NON-REACTIVE HEPATITIS B SURF AG (test code = 2739) NON-REACTIVE NON-REACTIVE HEPATITIS C ANTIBODY (test code = 4675) NON-REACTIVE NON-REACTIVE INTERPRETATION HEPATITIS A: (test code = 2552) (NOTE) Hepatitis A sero logy shows no evidence of acute hepatitis A. INTERPRETATION HEPATITIS B: (test code = 87910) (NOTE) Hepatitis B sero logy shows no evidence of acute hepatitis B andno indication of exposure to hepatitis B virus in the previous andrew eight months. INTERPRETATION HEPATITIS C: (test code = 18108) (NOTE) Hepatitis C sero logy shows no evidence of exposure to hepatitisC virus at this time. It can take up to 12 months after exposure tothe hepatitis C virus for antibodies to become detectable in the blood in certain patients. UNLESS OTHERWISE INDICATED, ALL TESTING PERFORMED AT [facility] [address] [place] [address] ACID SPLICER: LINDSEY BOWIE M.D. CLIA NUMBER [id number] [place] [id number] HEMOGLOBIN [id number] 02:48:14* Test Item Value Reference Range Interpretation Comme [facility] HEMOGLOBIN A1c (test code = 33695) 8.6 % 4.2-5.6 H [employer] GUIDELINES FOR HGB A1C: PREDIABETES/INCREASED RISK . . . . . . . 5.7-6.4% DIAGNOSIS OF DIABETES . . . . . . . . . >=6.5% WITH CONFIRMATION OR APPROPRIATE SYMPTOMS NOTE: ASSAY MAY BE AFFECTED BY HEMOGLOBINOPATHIES (SICKLE CELL ANEMIA, S-C DISEASE, OTHERS) OR ARTIFICIALLY LOWERED BY DECREASED RED CELL SURVIVAL (HEMOLYTIC ANEMIAS, BLOOD LOSS, ETC.). CONSIDER ALTERNATE TESTING OR LABORATORY CONSULTATION. CBC W/AUTO DIFF WITH [id number] 01:49:05* Test Item Value Reference Range Interpretation Comme nts WBC (test code = 1001) 7.7 K/UL 3.5-11.0 RBC (test code = 1002) 4.30 M/UL 3.80-5.40 HEMOGLOBIN (test code = 1003) 13.1 G/DL 11.5-15.5 HEMATOCRIT (test code = 1004) 40.1 % 34.0-45.0 MCV (test code = 1005) 93.3 fL 80.0-99.0 MCH (test code = 1006) 30.5 PG 25.0-33.0 MCHC (test code = 1007) 32.7 G/DL 31.0-36.0 RDW (test code = 1038) 11.8 % 11.5-15.0 NEUTROPHILS (test code = 1008) 71.0 % LYMPHOCYTES (test code = 1010) 18.1 % MONOCYTES (test code = 1011) 9.1 % EOSINOPHILS (test code = 1012) 1.0 % BASOPHILS (test code = 1013) 0.4 % IMMATURE GRANULOCYTES (test code = 1036) 0.4 % NUCLEATED RBCS (test code = 1065) 0.0 /100 WBC'S See_Comment [Automated [employer]] The system which generated this result transmitted reference range: 0.0. The reference range was not used to interpret this result as normal/abnormal. PLATELET COUNT (test code = 1015) 267 K/UL 130-400 ABSOLUTE NEUTROPHILS (test code = 1066) 5.44 K/UL 1.50-7.50 ABSOLUTE LYMPHOCYTES (test code = 1067) 1.39 K/UL 1.00-4.00 ABSOLUTE MONOCYTES (test code = 1068) 0.70 K/UL 0.20-1.00 ABSOLUTE EOSINOPHILS (test code = 1040) 0.08 K/UL 0.00-0.50 ABSOLUTE BASOPHILS (test code = 1069) 0.03 K/UL 0.00-0.20 ABS IMMATURE GRANULOCYTES (test code = 1020) 0.03 K/UL 0.00-0.10 ABS NUCLEATED RBCS (test code = 69273) 0.00 K/UL 0.00-0.11 CBC W/AUTO [id number] 00:00:00* Test Item Value Reference Range Interpretation Comme nts WBC (test code = 1001) 7.7 K/UL RBC (test code = 1002) 4.30 M/UL HEMOGLOBIN (test code = 1003) 13.1 G/DL HEMATOCRIT (test code = 1004) 40.1 % MCV (test code = 1005) 93.3 fL MCH (test code = 1006) 30.5 PG MCHC (test code = 1007) 32.7 G/DL RDW (test code = 1038) 11.8 % NEUTROPHILS (test code = 1008) 71.0 % LYMPHOCYTES (test code = 1010) 18.1 % MONOCYTES (test code = 1011) 9.1 % EOSINOPHILS (test code = 1012) 1.0 % BASOPHILS (test code = 1013) 0.4 % IMMATURE GRANULOCYTES (test code = 1036) 0.4 % NUCLEATED RBCS (test code = 1065) 0.0 /100WBC'S PLATELET COUNT (test code = 1015) 267 K/UL ABSOLUTE NEUTROPHILS (test c ode = 1066) 5.44 K/UL ABSOLUTE LYMPHOCYTES (test c ode = 1067) 1.39 K/UL ABSOLUTE MONOCYTES (test cod e = 1068) 0.70 K/UL ABSOLUTE EOSINOPHILS (test c ode = 1040) 0.08 K/UL ABSOLUTE BASOPHILS (test cod e = 1069) 0.03 K/UL ABS IMMATURE GRANULOCYTES (t est code = 1020) 0.03 K/UL ABS NUCLEATED RBCS (test cod e = 04882) 0.00 K/UL Hang CuevasIRON, [id number] 00:00:00* Test Item Value Reference Range Interpretation Comme nts IRON, SERUM (test code = 2222) 96 UG/DL Hang CuevasCOMPREHENSIVE METABOLIC [id number] 00:00:00* Test Item Value Reference Range Interpretation Comme nts GLUCOSE (test code = 2217) 151 MG/DL BUN (test code = 2208) 16 MG/DL CREATININE (test code = 2214) 0.44 MG/DL eGFR (2020 CKD-EPI) (test code = 90623) 118 ML/MIN/1.73 CALC BUN/CREAT (test code = 2235) 36 RATIO SODIUM (test code = 2231) 137 MEQ/L POTASSIUM (test code = 2228) 4.6 MEQ/L CHLORIDE (test code = 2215) 99 MEQ/L CARBON DIOXIDE (test code = 2206) 27 MEQ/L CALCIUM (test code = 2209) 10.0 MG/DL PROTEIN, TOTAL (test code = 2229) 7.0 G/DL ALBUMIN (test code = 2201) 4.4 G/DL CALC GLOBULIN (test code = 2240) 2.6 G/DL CALC A/G RATIO (test code = 2234) 1.7 RATIO BILIRUBIN, TOTAL (test code = 2207) 0.6 MG/DL ALKALINE PHOSPHATASE (test code = 2204) 38 U/L AST (test code = 2218) 17 U/L ALT (test code = 2219) 14 U/L Hang CuevasHEMOGLOBIN [id number] 00:00:00* Test Item Value Reference Range Interpretation Comme nts HEMOGLOBIN A1c (test code = 46178) 8.6 % Hang CuevasLIPID [id number] 00:00:00* Test Item Value Reference Range Interpretation Comme nts CHOLESTEROL (test code = 2210) 176 MG/DL TRIGLYCERIDES (test code = 2232) 135 MG/DL HDL CHOLESTEROL (test code = 2220) 72 MG/DL CALC LDL CHOL (test code = 2237) 81 MG/DL RISK RATIO LDL/HDL (test cod e = 2238) 1.13 RATIO Hang [id number] 00:00:00* Test Item Value Reference Range Interpretation Comme nts MAGNESIUM (test code = 2226) 1.5 MG/DL Hang CuevasHIV 1/2 4TH GEN, RFLX [id number] 00:00:00* Test Item Value Reference Range Interpretation Comme nts HIV 1/2 4TH GEN, RFLX CONF ( test code = 3514) NON-REACTIVE Hang CuevasACUTE HEPATITIS [id number] 00:00:00* Test Item Value Reference Range Interpretation Comme nts HEPATITIS A IgM (test code = 29108) NON-REACTIVE HEPATITIS B CORE IgM (test c ode = 4644) NON-REACTIVE HEPATITIS B SURF AG (test co de = 2739) NON-REACTIVE HEPATITIS C ANTIBODY (test c ode = 4610) NON-REACTIVE INTERPRETATION HEPATITIS A: (test code = 2552) (NOTE) INTERPRETATION HEPATITIS B: (test code = 31532) (NOTE) INTERPRETATION HEPATITIS C: (test code = 82153) (NOTE) Hang CuevasTHYROID STIMULATING [id number] 06:48:51* Test Item Value Reference Range Interpretation Comme nts TSH (test code = 1283965670) 0.86 See_Comment [Automated messa ge] The system which generated this result transmitted reference range: 0.45 - 4.70 mIU/L. The reference range was not used to interpret this result as normal/abnormal. Lab Interpretation (test code = 63139-6) [facility] [id number] 06:30:12* Test Item Value Reference Range Interpretation Comme nts TROPONIN I (test code = 9831505435) 0.004 ng/mL <=0.034 ELIER (test code = ELIER) Reference (Normal) Range (defined by the 99th percentile reference limit): <= 0.034 ng/mL Note: Cardiac troponin begins to rise 3-4 hours after the onset of ischemia. Repeat in 4-6 hours if the sample was drawn within 3-4 hours of the onset of the symptom and found normal. Diagnosis of myocardial injury is made with acute changes in cTn concentrations with at least one serial sample above the 99th percentile upper reference limit (URL), taken together with the patient's clinical presentation. Biotin has been reported to cause a negative bias, interpret results relative to patient's use of biotin. Lab Interpretation (test code = 67992-1) [facility] CenterMAGNESIUM2023-08-08 06:18:30* Test Item Value Reference Range Interpretation Comme nts MAGNESIUM (test code = 5886965323) 1.5 mg/dL 1.7-2.4 L Lab Interpretation (test cod e = 38199-4) Abnormal [facility] CenterCOMP[facility] METABOLIC PANEL (73086)2023-02-28 06:18:10* Test Item Value Reference Range Interpretation Comme nts NA (test code = 0292031190) 136 mmol/L 135-145 K (test code = 8255850186) 3.5 mmol/L 3.5-5.0 CL (test code = 1400072750) 99 mmol/L 98-108 CO2 TOTAL (test code = 8417528222) 26 mmol/L 23-31 AGAP (test code = 0516803606) 11 2-16 BUN (test code = 0716481254) 11 mg/dL 7-23 GLUCOSE (test code = 9841013429) 230 mg/dL 70-110 H CREATININE (test code = 0405833421) 0.39 mg/dL 0.50-1.04 L TOTAL BILI (test code = 9633312771) 0.5 mg/dL 0.1-1.1 CALCIUM (test code = 5053945174) 9.1 mg/dL 8.6-10.6 T PROTEIN (test code = 3268663926) 7.7 g/dL 6.3-8.2 ALBUMIN (test code = 1043616361) 4.2 g/dL 3.5-5.0 ALK PHOS (test code = 3212453289) 45 U/L 34-122 ALTv (test code = 1742-6) 18 U/L 5-35 AST(SGOT) (test code = 6821613266) 27 U/L 13-40 eGFR (test code = 7380247362) 174.0 mL/min/1.73m2 ELIER (test code = ELIER) Association of Glomerular Filtration Rate (GFR) and Staging of Kidney Disease* + --+ --+ ------+| GFR (mL/min/1.73 m2) ?| With Kidney Damage ?| ?Without Kidney Damage+ --------+ --------+ +| ?>90 ?| ?Stage one ?| ? Normal ?+ ---+ ---+ -------+| ?60-89 ?| ?Stage two ?| ? Decreased GFR ? + --+ --+ ------+| ?30-59 ?| ?Stage three ?| ? Stage three ? + --+ --+ ------+| ?15-29 ?| ?Stage four ? | ? Stage four ?+ ---+ ---+ -------+| ?<15 (or dialysis) ? ?| ?Stage five ? | ? Stage five ?+ ---+ ---+ -------+ *Each stage assumes the associated GFR level has been in effect for at least three months. ?Stages 1 to 5, with or without kidney disease, indicate chronic kidney disease. Notes: Determination of stages one and two (with eGFR >59mL/min/1.73 m2) requires estimation of kidney damage for at least three months as defined by structural or functional abnormalities of the kidney, manifested by either:Pathological abnormalities or Markers of kidney damage (including abnormalities in the composition of the blood or urine or abnormalities in imaging tests). Lab Interpretation (test code = 06827-0) Abnormal [facility] WITH [id number] 05:58:27* Test Item Value Reference Range Interpretation Comme nts WBC (test code = 6690-2) 7.33 See_Comment [Automated messa ge] The system which generated this result transmitted reference range: 4.30 - 11.10 10*3/?L. The reference range was not used to interpret this result as normal/abnormal. RBC (test code = 789-8) 4.26 See_Comment [Automated messa ge] The system which generated this result transmitted reference range: 3.93 - 5.25 10*6/?L. The reference range was not used to interpret this result as normal/abnormal. HGB (test code = 718-7) 13.5 g/dL 11.6-15.0 HCT (test code = 4544-3) 39.7 % 35.7-45.2 MCV (test code = 787-2) 93.2 fL 80.6-95.5 MCH (test code = 785-6) 31.7 pg 25.9-32.8 MCHC (test code = 786-4) 34.0 g/dL 31.6-35.1 RDW-SD (test code = 57315-2) 41.6 fL 39.0-49.9 RDW-CV (test code = 788-0) 12.2 % 12.0-15.5 PLT (test code = 777-3) 280 See_Comment [Automated messa ge] The system which generated this result transmitted reference range: 166 - 358 10*3/?L. The reference range was not used to interpret this result as normal/abnormal. MPV (test code = 15750-4) 12.1 fL 9.5-12.9 NRBC/100 WBC (test code = 1366848294) 0.0 See_Comment [Automated me ssage] The system which generated this result transmitted reference range: 0.0 - 10.0 /100 WBCs. The reference range was not used to interpret this result as normal/abnormal. NRBC x10^3 (test code = 7089589731) See_Comment [Automated me ssage] The system which generated this result transmitted reference range: 10*3/?L. The reference range was not used to interpret this result as normal/abnormal. GRAN MAT (NEUT) % (test code = 770-8) 61.9 % IMM GRAN % (test code = 9999921974) 0.30 % LYMPH % (test code = 736-9) 25.9 % MONO % (test code = 5905-5) 9.4 % EOS % (test code = 713-8) 2.0 % BASO % (test code = 706-2) 0.5 % GRAN MAT x10^3(ANC) (test code = 1255461372) 4.53 10*3/uL 1.88-7.09 IMM GRAN x10^3 (test code = 0953510203) 0.00-0.06 LYMPH x10^3 (test code = 731-0) 1.90 10*3/uL 1.32-3.29 MONO x10^3 (test code = 742-7) 0.69 10*3/uL 0.33-0.92 EOS x10^3 (test code = 711-2) 0.15 10*3/uL 0.03-0.39 BASO x10^3 (test code = 704-7) 0.04 10*3/uL 0.01-0.07 [facility]FERRITIN20[facility] 05:47:36* Test Item Value Reference Range Interpretation Comme [facility] FERRITIN (test code = 2075) 18 NG/ML 13-200 VITAMIN B 12 AND FOLIC [id number] 05:47:36* Test Item Value Reference Range Interpretation Comme [facility] VITAMIN B-12 (test code = 2840) 311 PG/ML 200-950 FOLIC ACID (test code = 2695) 15.6 UG/L SEE BELOW INTERPRETI VE RANGES DEFICIENCY . . . . . . . . . . . . . . . UG/L <4.0 POSSIBLE DEFICIENCY. . . . . . . . . . . UG/L 4.0-5.9 SUFFICIENT . . . . . . . . . . . . . . . UG/L >=6.0 [facility] has important pathology staff changes effective 09/21/2022. New pathology staff will provide uninterrupted, excellent patient care and clinical consultation. See URL: [email or web address]. UNLESS OTHERWISE INDICATED, ALL TESTING PERFORMED AT [facility] [address] [facility] [address] ACID SPLICER: LINDSEY BOWIE M.D. [place] NUMBER [id number] [place] [id number] HEMOGLOBIN [id number] 05:09:14* Test Item Value Reference Range Interpretation Comme nts HEMOGLOBIN A1c (test code = 38467) 6.4 % 4.2-5.6 H [employer] GUIDELINES FOR HGB A1C: PREDIABETES/INCREASED RISK . . . . . . . 5.7-6.4% DIAGNOSIS OF DIABETES . . . . . . . . . >=6.5% WITH CONFIRMATION OR APPROPRIATE SYMPTOMS NOTE: ASSAY MAY BE AFFECTED BY HEMOGLOBINOPATHIES (SICKLE CELL ANEMIA, S-C DISEASE, OTHERS) OR ARTIFICIALLY LOWERED BY DECREASED RED CELL SURVIVAL (HEMOLYTIC ANEMIAS, BLOOD LOSS, ETC.). CONSIDER ALTERNATE TESTING OR LABORATORY CONSULTATION. CBC W/AUTO DIFF WITH [id number] 04:26:35* Test Item Value Reference Range Interpretation Comme nts WBC (test code = 1001) 5.9 K/UL 3.5-11.0 RBC (test code = 1002) 4.32 M/UL 3.80-5.40 HEMOGLOBIN (test code = 1003) 12.2 G/DL 11.5-15.5 HEMATOCRIT (test code = 1004) 38.0 % 34.0-45.0 MCV (test code = 1005) 88.0 fL 80.0-99.0 MCH (test code = 1006) 28.2 PG 25.0-33.0 MCHC (test code = 1007) 32.1 G/DL 31.0-36.0 RDW (test code = 1038) 13.9 % 11.5-15.0 NEUTROPHILS (test code = 1008) 66.1 % LYMPHOCYTES (test code = 1010) 16.6 % MONOCYTES (test code = 1011) 9.4 % EOSINOPHILS (test code = 1012) 6.7 % BASOPHILS (test code = 1013) 1.0 % IMMATURE GRANULOCYTES (test code = 1036) 0.2 % NUCLEATED RBCS (test code = 1065) 0.0 /100 WBC'S See_Comment [Automated messa ge] The system which generated this result transmitted reference range: 0.0. The reference range was not used to interpret this result as normal/abnormal. PLATELET COUNT (test code = 1015) 241 K/UL 130-400 ABSOLUTE NEUTROPHILS (test code = 1066) 3.88 K/UL 1.50-7.50 ABSOLUTE LYMPHOCYTES (test code = 1067) 0.97 K/UL 1.00-4.00 L ABSOLUTE MONOCYTES (test code = 1068) 0.55 K/UL 0.20-1.00 ABSOLUTE EOSINOPHILS (test code = 1040) 0.39 K/UL 0.00-0.50 ABSOLUTE BASOPHILS (test code = 1069) 0.06 K/UL 0.00-0.20 ABS IMMATURE GRANULOCYTES (test code = 1020) 0.01 K/UL 0.00-0.10 ABS NUCLEATED RBCS (test code = 10532) 0.00 K/UL 0.00-0.11 COMPREHENSIVE METABOLIC [id number] 03:50:14* Test Item Value Reference Range Interpretation Comme nts GLUCOSE (test code = 2217) 121 MG/DL 70-99 H BUN (test code = 2207) 7 MG/DL 6-20 CREATININE (test code = 2214) 0.44 MG/DL 0.60-1.30 L eGFR (2020 CKD-EPI) (test code = 65357) 118 ML/MIN/1.73 >60 CALC BUN/CREAT (test code = 223) 16 RATIO 6-28 SODIUM (test code = 223) 137 MEQ/L 133-146 POTASSIUM (test code = 2228) 4.3 MEQ/L 3.5-5.4 CHLORIDE (test code = 2215) 99 MEQ/L 95-107 CARBON DIOXIDE (test code = 220) 26 MEQ/L 19-31 CALCIUM (test code = 220) 9.7 MG/DL 8.5-10.5 PROTEIN, TOTAL (test code = 2228) 7.1 G/DL 6.1-8.3 ALBUMIN (test code = 2200) 4.5 G/DL 3.5-5.2 CALC GLOBULIN (test code = 2240) 2.6 G/DL 1.9-3.7 CALC A/G RATIO (test code = 223) 1.7 RATIO 1.0-2.6 BILIRUBIN, TOTAL (test code = 2207) 0.3 MG/DL See_Comment [Automated me ssage] The system which generated this result transmitted reference range: <=1.2. The reference range was not used to interpret this result as normal/abnormal. ALKALINE PHOSPHATASE (test code = 2203) 40 U/L 40-125 AST (test code = 8) 14 U/L 9-40 ALT (test code = 2218) 8 U/L 5-40 LIPID [id number] 03:50:14* Test Item Value Reference Range Interpretation Comme nts CHOLESTEROL (test code = 0) 254 MG/DL <200 H TRIGLYCERIDES (test code = 2231) 258 MG/DL <150 H HDL CHOLESTEROL (test code = 2219) 70 MG/DL >39 CALC LDL CHOL (test code = 2236) 144 MG/DL <100 H NOTE: CALCULATED LDL IS BASED ON KENNETH-WOLF METHOD WHICHINCLUDES ADJUSTABLE TRIGLYCERIDE:VLDL CHOLESTEROL RATIO.THIS FACTOR VARIES BY MEASURED TRIGLYCERIDE AND NON-HDLCHOLESTEROL CONCENTRATIONS WITH INCREASED CALCULATED LDL SEENIN HIGHER TRIGLYCERIDE OR LOWER NON-HDL SPECIMENS. FOR MOREINFORMATION, SEE CLIENT ANNOUNCEMENT AT [email or web address] [email or web address] RATIO LDL/HDL (test code = 2237) 2.06 RATIO <3.22 IRON BINDING CAPACITY AND IRON AND % [id number] 03:50:14* Test Item Value Reference Range Interpretation Comme nts IRON, SERUM (test code = 222) 98 UG/DL 37-145 UNSATURATED IBC (test code = 76447) 336 UG/DL 112-347 CALC TOTAL IBC (test code = 2076) 434 UG/DL 250-450 CALC % IRON SAT (test code = 2078) 23 % 20-50 [id number] 03:45:22* Test Item Value Reference Range Interpretation Comme nts TRANSFERRIN (test code = 4936) 371 MG/DL 200-360 H COMPREHENSIVE METABOLIC [id number] 00:00:00* Test Item Value Reference Range Interpretation Comme nts GLUCOSE (test code = 2216) 121 MG/DL BUN (test code = 8) 7 MG/DL CREATININE (test code = 4) 0.44 MG/DL eGFR (2020 CKD-EPI) (test code = 09054) 118 ML/MIN/1.73 CALC BUN/CREAT (test code = 2235) 16 RATIO SODIUM (test code = 2231) 137 MEQ/L POTASSIUM (test code = 2228) 4.3 MEQ/L CHLORIDE (test code = 2215) 99 MEQ/L CARBON DIOXIDE (test code = 2206) 26 MEQ/L CALCIUM (test code = 2209) 9.7 MG/DL PROTEIN, TOTAL (test code = 2229) 7.1 G/DL ALBUMIN (test code = 2201) 4.5 G/DL CALC GLOBULIN (test code = 2240) 2.6 G/DL CALC A/G RATIO (test code = 2234) 1.7 RATIO BILIRUBIN, TOTAL (test code = 2207) 0.3 MG/DL ALKALINE PHOSPHATASE (test code = 2204) 40 U/L AST (test code = 2218) 14 U/L ALT (test code = 2219) 8 U/L Hang CuevasHEMOGLOBIN [id number] 00:00:00* Test Item Value Reference Range Interpretation Comme nts HEMOGLOBIN A1c (test code = 16795) 6.4 % Hang CuevasLIPID [id number] 00:00:00* Test Item Value Reference Range Interpretation Comme nts CHOLESTEROL (test code = 2210) 254 MG/DL TRIGLYCERIDES (test code = 2232) 258 MG/DL HDL CHOLESTEROL (test code = 2220) 70 MG/DL CALC LDL CHOL (test code = 2237) 144 MG/DL RISK RATIO LDL/HDL (test cod e = 2238) 2.06 RATIO Hang CuevasCBC W/AUTO [id number] 00:00:00* Test Item Value Reference Range Interpretation Comme nts WBC (test code = 1001) 5.9 K/UL RBC (test code = 1002) 4.32 M/UL HEMOGLOBIN (test code = 1003) 12.2 G/DL HEMATOCRIT (test code = 1004) 38.0 % MCV (test code = 1005) 88.0 fL MCH (test code = 1006) 28.2 PG MCHC (test code = 1007) 32.1 G/DL RDW (test code = 1038) 13.9 % NEUTROPHILS (test code = 1008) 66.1 % LYMPHOCYTES (test code = 1010) 16.6 % MONOCYTES (test code = 1011) 9.4 % EOSINOPHILS (test code = 1012) 6.7 % BASOPHILS (test code = 1013) 1.0 % IMMATURE GRANULOCYTES (test code = 1036) 0.2 % NUCLEATED RBCS (test code = 1065) 0.0 /100WBC'S PLATELET COUNT (test code = 1015) 241 K/UL ABSOLUTE NEUTROPHILS (test c ode = 1066) 3.88 K/UL ABSOLUTE LYMPHOCYTES (test c ode = 1067) 0.97 K/UL ABSOLUTE MONOCYTES (test cod e = 1068) 0.55 K/UL ABSOLUTE EOSINOPHILS (test c ode = 1040) 0.39 K/UL ABSOLUTE BASOPHILS (test cod e = 1069) 0.06 K/UL ABS IMMATURE GRANULOCYTES (t est code = 1020) 0.01 K/UL ABS NUCLEATED RBCS (test cod e = 72311) 0.00 K/UL Hang [id number] 00:00:00* Test Item Value Reference Range Interpretation Comme nts FERRITIN (test code = 2075) 18 NG/ML Hang CuevasIRON BINDING CAPACITY AND IRON AND % [id number] 00:00:00* Test Item Value Reference Range Interpretation Comme nts IRON, SERUM (test code = 2222) 98 UG/DL UNSATURATED IBC (test code = 84406) 336 UG/DL CALC TOTAL IBC (test code = 2077) 434 UG/DL CALC % IRON SAT (test code = 2079) 23 % Hang [id number] 00:00:00* Test Item Value Reference Range Interpretation Comme nts TRANSFERRIN (test code = 4936) 371 MG/DL Hang CuevasVITAMIN B 12 AND FOLIC [id number] 00:00:00* Test Item Value Reference Range Interpretation Comme nts VITAMIN B-12 (test code = 2840) 311 PG/ML FOLIC ACID (test code = 2695) 15.6 UG/L Hang CuevasType and Screen - This is a pre-surgical type and screen. ONCE [id number] 19:26:38* Test Item Value Reference Range Interpretation Comme nts ABO & RH (test code = 20) A NEGATIVE Performed at [facility] B Laboratory Services - [facility] Blood [address] [place] [address]Kndw Free: [phone] No. [id number] IAT (test code = 1185) Negative Performed at [facility] Laboratory Services - [facility] Blood [address] [address]Rxgy Free: [phone] No. [id number] [facility] - This is a pre-surgical type and screen. ONCE [id number] 19:26:38* Test Item Value Reference Range Interpretation Comme nts ABO & RH (test code = 20) A NEGATIVE Performed at [facility] Laboratory Services - [facility] Blood [address] [address]Dprz Free: [phone] No. [id number] IAT (test code = 1185) Negative Performed at [facility] Laboratory Services - [facility] Blood [address] [address]Qwag Free: [phone] No. [id number] [facility] CenterPO[facility] [id number] 18:59:00* Test Item Value Reference Range Interpretation Comme nts POCT PREG (test code = 1605) Negative On board controls acceptable with C Line (test code = 3574) Yes POCT PREG LOT # (test code = 3575) POCT PREG TEST DATE ( test code = 3576) [facility]PO[facility] [id number] 18:59:00* Test Item Value Reference Range Interpretation Comme nts POCT PREG (test code = 1605) Negative On board controls acceptable with C Line (test code = 3574) Yes POCT PREG LOT # (test code = 3575) POCT PREG TEST DATE ( test code = 3576) [facility] ONCE [id number] 00:59:46 * Test Item Value Reference Range Interpretation Comme nts ABO & RH (test code = 20) A Negative Performed at [facility] Laboratory Services - [facility] Blood [address] [place] [id number] Free: [phone] No. [id number] IAT (test code = 1185) Negative Performed at [facility] Laboratory Services [facility] Blood [address] [place], [place] [id number] Free: [phone] No. [id number] [facility] CenterTROPONIN [id number] 00:48:08* Test Item Value Reference Range Interpretation Comme nts TROPONIN I (test code = 0006339099) 0.004 ng/mL <=0.034 ELIER (test code = ELIER) Reference (Normal) Range (defined by the 99th percentile reference limit): <= 0.034 ng/mL Note: Cardiac troponin begins to rise 3-4 hours after the onset of ischemia. Repeat in 4-6 hours if the sample was drawn within 3-4 hours of the onset of the symptom and found normal. Diagnosis of myocardial injury is made with acute changes in cTn concentrations with at least one serial sample above the 99th percentile upper reference limit (URL), taken together with the patient's clinical presentation. Biotin has been reported to cause a negative bias, interpret results relative to patient's use of biotin. Lab Interpretation (test code = 64754-8) Normal [facility] CenterPREGNANCY TEST, [id number] 00:41:50* Test Item Value Reference Range Interpretation Comme nts PREG SERUM (test code = 7382676740) Negative ELIER (test code = ELIER) Less than 10 IU/L. ?If low titer or ectopic is suspected, resubmit specimen in 48-72 hours. [facility]. METABOLIC PANEL (33316)2022-09-07 00:37:50* Test Item Value Reference Range Interpretation Comme nts NA (test code = 6226974050) 134 mmol/L 135-145 L K (test code = 7141271476) 4.1 mmol/L 3.5-5.0 CL (test code = 7916803003) 97 mmol/L 98-108 L CO2 TOTAL (test code = 8325382564) 23 mmol/L 23-31 AGAP (test code = 2998345932) 14 2-16 BUN (test code = 1080489711) 15 mg/dL 7-23 GLUCOSE (test code = 1868016279) 259 mg/dL 70-110 H CREATININE (test code = 1499490475) 0.48 mg/dL 0.50-1.04 L TOTAL BILI (test code = 7019625889) 0.4 mg/dL 0.1-1.1 CALCIUM (test code = 2539180523) 9.3 mg/dL 8.6-10.6 T PROTEIN (test code = 8719077981) 7.0 g/dL 6.3-8.2 ALBUMIN (test code = 0718013631) 4.0 g/dL 3.5-5.0 ALK PHOS (test code = 0868049827) 48 U/L 34-122 ALTv (test code = 1742-6) 16 U/L 5-35 AST(SGOT) (test code = 4324372546) 25 U/L 13-40 eGFR (test code = 6424807368) 137.5 mL/min/1.73m2 ELIER (test code = ELIER) Association of Glomerular Filtration Rate (GFR) and Staging of Kidney Disease* + --+ --+ ------+| GFR (mL/min/1.73 m2) ?| With Kidney Damage ?| ?Without Kidney Damage+ --------+ --------+ +| ?>90 ?| ?Stage one ?| ? Normal ?+ ---+ ---+ -------+| ?60-89 ?| ?Stage two ?| ? Decreased GFR ? + --+ --+ ------+| ?30-59 ?| ?Stage three ?| ? Stage three ? + --+ --+ ------+| ?15-29 ?| ?Stage four ? | ? Stage four ?+ ---+ ---+ -------+| ?<15 (or dialysis) ? ?| ?Stage five ? | ? Stage five ?+ ---+ ---+ -------+ *Each stage assumes the associated GFR level has been in effect for at least three months. ?Stages 1 to 5, with or without kidney disease, indicate chronic kidney disease. Notes: Determination of stages one and two (with eGFR >59mL/min/1.73 m2) requires estimation of kidney damage for at least three months as defined by structural or functional abnormalities of the kidney, manifested by either:Pathological abnormalities or Markers of kidney damage (including abnormalities in the composition of the blood or urine or abnormalities in imaging tests). Lab Interpretation (test code = 07706-3) [facility] Test Item Value Reference Range Interpretation Comme nts LIPASE (test code = 3741394787) 99 U/L 0-220 Lab Interpretation (test cod e = 29197-2) Normal [facility] WITH [id number] 00:27:48* Test Item Value Reference Range Interpretation Comme nts WBC (test code = 6690-2) 11.87 See_Comment H [Automated messa ge] The system which generated this result transmitted reference range: 4.30 - 11.10 10*3/?L. The reference range was not used to interpret this result as normal/abnormal. RBC (test code = 789-8) 3.59 See_Comment L [Automated messa ge] The system which generated this result transmitted reference range: 3.93 - 5.25 10*6/?L. The reference range was not used to interpret this result as normal/abnormal. HGB (test code = 718-7) 10.2 g/dL 11.6-15.0 L HCT (test code = 4544-3) 31.9 % 35.7-45.2 L MCV (test code = 787-2) 88.9 fL 80.6-95.5 MCH (test code = 785-6) 28.4 pg 25.9-32.8 MCHC (test code = 786-4) 32.0 g/dL 31.6-35.1 RDW-SD (test code = 31068-8) 45.6 fL 39.0-49.9 RDW-CV (test code = 788-0) 14.1 % 12.0-15.5 PLT (test code = 777-3) 455 See_Comment H [Automated messa ge] The system which generated this result transmitted reference range: 166 - 358 10*3/?L. The reference range was not used to interpret this result as normal/abnormal. MPV (test code = 99342-4) 11.9 fL 9.5-12.9 NRBC/100 WBC (test code = 4926286264) 0.0 See_Comment [Automated me ssage] The system which generated this result transmitted reference range: 0.0 - 10.0 /100 WBCs. The reference range was not used to interpret this result as normal/abnormal. NRBC x10^3 (test code = 9347372774) See_Comment [Automated messa ge] The system which generated this result transmitted reference range: 10*3/?L. The reference range was not used to interpret this result as normal/abnormal. GRAN MAT (NEUT) % (test code = 770-8) 84.2 % IMM GRAN % (test code = 9097817157) 0.50 % LYMPH % (test code = 736-9) 10.1 % MONO % (test code = 5905-5) 4.7 % EOS % (test code = 713-8) 0.1 % BASO % (test code = 706-2) 0.4 % GRAN MAT x10^3(ANC) (test code = 5290850532) 9.99 10*3/uL 1.88-7.09 H IMM GRAN x10^3 (test code = 3952732818) 0.06 10*3/uL 0.00-0.06 LYMPH x10^3 (test code = 731-0) 1.20 10*3/uL 1.32-3.29 L MONO x10^3 (test code = 742-7) 0.56 10*3/uL 0.33-0.92 EOS x10^3 (test code = 711-2) 0.03-0.39 L BASO x10^3 (test code = 704-7) 0.05 10*3/uL 0.01-0.07 Lab Interpretation (test code = 37105-5) [facility]normal [facility] [id number] 22:32:54* Test Item Value Reference Range Interpretation Comme nts ABO & RH (test code = 20) A Negative Performed at [facility] Laboratory Services - [facility] Blood [address] [place], [place] [id number] Free: [phone] No. [id number] IAT (test code = 1185) Negative Performed at [facility] Laboratory Services - [facility] Blood [address] [place] [address]Xzxi Free: [phone] No. [id number] [facility] CenterHEMOGLOBIN A1c [ADDED]2022-06-04 00:00:00* Test Item Value Reference Range Interpretation Comme nts HEMOGLOBIN A1c (test code = 98901) 6.4 % Hang Lujan MasonLIPID PANEL [ADDED]2022-06-04 00:00:00* Test Item Value Reference Range Interpretation Comme nts CHOLESTEROL (test code = 2210) 162 MG/DL TRIGLYCERIDES (test code = 2232) 164 MG/DL HDL CHOLESTEROL (test code = 2220) 61 MG/DL CALC LDL CHOL (test code = 2237) 75 MG/DL RISK RATIO LDL/HDL (test cod e = 2238) 1.23 RATIO Hang CuevasCOMPREHENSIVE METABOLIC PANEL [ADDED]2022-06-04 00:00:00* Test Item Value Reference Range Interpretation Comme nts GLUCOSE (test code = 2217) 103 MG/DL BUN (test code = 2208) 7 MG/DL CREATININE (test code = 2214) 0.37 MG/DL eGFR (2020 CKD-EPI) (test code = 73368) 124 ML/MIN/1.73 CALC BUN/CREAT (test code = 2235) 19 RATIO SODIUM (test code = 2231) 137 MEQ/L POTASSIUM (test code = 2228) 4.9 MEQ/L CHLORIDE (test code = 2215) 99 MEQ/L CARBON DIOXIDE (test code = 2206) 24 MEQ/L CALCIUM (test code = 2209) 9.9 MG/DL PROTEIN, TOTAL (test code = 2229) 7.3 G/DL ALBUMIN (test code = 2201) 4.2 G/DL CALC GLOBULIN (test code = 2240) 3.1 G/DL CALC A/G RATIO (test code = 2234) 1.4 RATIO BILIRUBIN, TOTAL (test code = 2207) 0.4 MG/DL ALKALINE PHOSPHATASE (test code = 2204) 72 U/L AST (test code = 2218) 10 U/L ALT (test code = 2219) 14 U/L Hang CuevasALBUMIN/CREATININE RATIO, URINE, RANDOM [ADDED]2022-06-04 00:00:00* Test Item Value Reference Range Interpretation Comme nts CREATININE, URINE, CONC. (te st code = 2072) 80.9 MG/DL ALBUMIN, URINE, RANDOM (test code = 71577) 1.6 MG/DL CALC ALBUMIN/CREAT, RND (leonor t code = 48073) 20 MG/G Hang Lujan AustinPROFILE / HEMOGRAM - 30 minutes after transfusion of each RBC 2022-05-25 03:35:50* Test Item Value Reference Range Interpretation Comme nts WBC (test code = 6690-2) See_Comment [Automated message] The system which generated this result transmitted reference range: 4.30 - 11.10 10*3/?L. The reference range was not used to interpret this result as normal/abnormal. RBC (test code = 789-8) See_Comment L [Automated message] The system which generated this result transmitted reference range: 3.93 - 5.25 10*6/?L. The reference range was not used to interpret this result as normal/abnormal. HGB (test code = 718-7) 7.6 g/dL 11.6-15.0 L HCT (test code = 4544-3) 25.2 % 35.7-45.2 L MCH (test code = 785-6) 24.9 pg 25.9-32.8 L MCV (test code = 787-2) 82.6 fL 80.6-95.5 MCHC (test code = 786-4) 30.2 g/dL 31.6-35.1 L PLT (test code = 777-3) See_Comment H [Automated message] The system which generated this result transmitted reference range: 166 - 358 10*3/?L. The reference range was not used to interpret this result as normal/abnormal. MPV (test code = 88061-5) 10.9 fL 9.5-12.9 RDW-CV (test code = 788-0) 20.5 % 12.0-15.5 H RDW-SD (test code = 21828-8) 54.7 fL 39.0-49.9 H NRBC x10^3 (test code = 0409908353) See_Comment [Automated messa ge] The system which generated this result transmitted reference range: 10*3/?L. The reference range was not used to interpret this result as normal/abnormal. NRBC/100 WBC (test code = 6663471208) See_Comment [Automated messa ge] The system which generated this result transmitted reference range: 0.0 - 10.0 /100 WBCs. The reference range was not used to interpret this result as normal/abnormal. IPF % (test code = 6975357608) Lab Interpretation (test code = 12414-2) Abnormal [facility] CenterPrepare Packed RBC (in units), 1 Units 2022-05-25 01:01:07* Test Item Value Reference Range Interpretation Comme nts Cross Match Result (test code = 4409) Compatible ISBT Blood Type Code (test code = 259981) Unit Blood Type (test code = 4410) A Neg Unit Number (test code = 4411) [id number] Blood Expiration Date & Time (test code = 481379) Status Information (test code = 4412) Issued Product Identification (test code = 4413) Red Blood Cells Product Code (test code = 4414) [id number] Performed at [facility] Laboratory [facility] Blood [address] Free: [phone] No. [id number] [facility] CenterType and Screen - ONCE [id number] 23:58:16* Test Item Value Reference Range Interpretation Comme nts ABO & RH (test code = 20) A Negative Performed at [facility] Laboratory [facility] Blood [place] [address]Toll Free: [phone] No. [id number] IAT (test code = 1185) Negative Performed at [facility] Laboratory [facility] Blood [address] Free: [phone] No. [id number] [facility] CenterTROPONIN [id number] 23:24:28* Test Item Value Reference Range Interpretation Comments TROPONIN I (test code = 2361798331) 0.001 ng/mL See_Comment [Automated message] The system which generated this result transmitted reference range: <=0.034. The reference range was not used to interpret this result as normal/abnormal. ELIER (test code = ELIER) Reference (Normal) Range (defined by the 99th percentile reference limit): <= 0.034 ng/mL Note: Cardiac troponin begins to rise 3-4 hours after the onset of ischemia. Repeat in 4-6 hours if the sample was drawn within 3-4 hours of the onset of the symptom and found normal. Diagnosis of myocardial injury is made with acute changes in cTn concentrations with at least one serial sample above the 99th percentile upper reference limit (URL), taken together with the patient's clinical presentation. Biotin has been reported to cause a negative bias, interpret results relative to patient's use of biotin. Lab Interpretation (test code = 37754-2) Normal [facility] CenterN-TERMINAL [id number] 23:21:29* Test Item Value Reference Range Interpretation Comme nts NT-proBNP (test code = 1390530210) 81 pg/mL See_Comment [Automated message] The system which generated this result transmitted reference range: <=125. The reference range was not used to interpret this result as normal/abnormal. ELIER (test code = ELIER) Biotin has been reported to cause a negative bias, interpret results relative to patient's use of biotin. Lab Interpretation (test code = 81815-2) Normal [facility] CenterCOMP. METABOLIC PANEL (24996)2022-05-24 23:12:44* Test Item Value Reference Range Interpretation Comme nts NA (test code = 7556838732) 137 mmol/L 135-145 K (test code = 1104552200) 4.3 mmol/L 3.5-5.0 CL (test code = 3286668647) 103 mmol/L 98-108 CO2 TOTAL (test code = 6230590014) 26 mmol/L 23-31 AGAP (test code = 8291949045) 2-16 BUN (test code = 7492975123) 9 mg/dL 7-23 GLUCOSE (test code = 0070964714) 163 mg/dL 70-110 H CREATININE (test code = 4781034280) 0.58 mg/dL 0.50-1.04 TOTAL BILI (test code = 7747385486) 0.5 mg/dL 0.1-1.1 CALCIUM (test code = 6217357113) 9.2 mg/dL 8.6-10.6 T PROTEIN (test code = 9929676931) 6.8 g/dL 6.3-8.2 ALBUMIN (test code = 3535867218) 4.3 g/dL 3.5-5.0 ALK PHOS (test code = 9270229758) 37 U/L 34-122 ALTv (test code = 1742-6) 19 U/L 5-35 AST(SGOT) (test code = 9998910508) 25 U/L 13-40 eGFR (test code = 6317734744) mL/min/1.73m2 ELIER (test code = ELIER) Association of Glomerular Filtration Rate (GFR) and Staging of Kidney Disease* + --+ --+ ------+| GFR (mL/min/1.73 m2) ?| With Kidney Damage ?| ?Without Kidney Damage+ --------+ --------+ +| ?>90 ?| ?Stage one ?| ? Normal ?+ ---+ ---+ -------+| ?60-89 ?| ?Stage two ?| ? Decreased GFR ? + --+ --+ ------+| ?30-59 ?| ?Stage three ?| ? Stage three ? + --+ --+ ------+| ?15-29 ?| ?Stage four ? | ? Stage four ?+ ---+ ---+ -------+| ?<15 (or dialysis) ? ?| ?Stage five ? | ? Stage five ?+ ---+ ---+ -------+ *Each stage assumes the associated GFR level has been in effect for at least three months. ?Stages 1 to 5, with or without kidney disease, indicate chronic kidney disease. Notes: Determination of stages one and two (with eGFR >59mL/min/1.73 m2) requires estimation of kidney damage for at least three months as defined by structural or functional abnormalities of the kidney, manifested by either:Pathological abnormalities or Markers of kidney damage (including abnormalities in the composition of the blood or urine or abnormalities in imaging tests). Lab Interpretation (test code = 59358-5) Abnormal [facility] CenterLIPASE2022-11-01 23:12:44* Test Item Value Reference Range Interpretation Comme [facility] LIPASE (test code = 6299842002) 116 U/L 0-220 Lab Interpretation (test cod e = 72444-5) Normal [facility] CenterPROTHROMBIN TIME / [id number] 22:56:04* Test Item Value Reference Range Interpretation Comme [facility] PROTIME PATIENT (test code = 5964-2) See_Comment [Automated messa ge] The system which generated this result transmitted reference range: 12.0 - 14.7 Seconds. The reference range was not used to interpret this result as normal/abnormal. INR (test code = 6301-6) Normal INR <1.1; Warfarin Therapeutic range 2.0 to 3.0 or 2.5 to 3.5, depending upon the indications. Lab Interpretation (test code = 37103-1) Normal [facility] WITH [id number] 22:49:41* Test Item Value Reference Range Interpretation Comme nts WBC (test code = 6690-2) See_Comment [Automated messa ge] The system which generated this result transmitted reference range: 4.30 - 11.10 10*3/?L. The reference range was not used to interpret this result as normal/abnormal. RBC (test code = 789-8) See_Comment L [Automated messa ge] The system which generated this result transmitted reference range: 3.93 - 5.25 10*6/?L. The reference range was not used to interpret this result as normal/abnormal. HGB (test code = 718-7) 6.8 g/dL 11.6-15.0 L HCT (test code = 4544-3) 22.9 % 35.7-45.2 L MCV (test code = 787-2) 82.4 fL 80.6-95.5 MCH (test code = 785-6) 24.5 pg 25.9-32.8 L MCHC (test code = 786-4) 29.7 g/dL 31.6-35.1 L RDW-SD (test code = 66344-6) 55.2 fL 39.0-49.9 H RDW-CV (test code = 788-0) 21.2 % 12.0-15.5 H PLT (test code = 777-3) See_Comment H [Automated messa ge] The system which generated this result transmitted reference range: 166 - 358 10*3/?L. The reference range was not used to interpret this result as normal/abnormal. MPV (test code = 41558-0) 10.9 fL 9.5-12.9 NRBC/100 WBC (test code = 6826945564) See_Comment [Automated me ssage] The system which generated this result transmitted reference range: 0.0 - 10.0 /100 WBCs. The reference range was not used to interpret this result as normal/abnormal. NRBC x10^3 (test code = 7472065366) See_Comment [Automated messa ge] The system which generated this result transmitted reference range: 10*3/?L. The reference range was not used to interpret this result as normal/abnormal. GRAN MAT (NEUT) % (test code = 770-8) 57.2 % IMM GRAN % (test code = 7768335687) 0.50 % LYMPH % (test code = 736-9) 27.8 % MONO % (test code = 5905-5) 11.5 % EOS % (test code = 713-8) 2.3 % BASO % (test code = 706-2) 0.7 % GRAN MAT x10^3(ANC) (test code = 6896277573) 3.30 10*3/uL 1.88-7.09 IMM GRAN x10^3 (test code = 4325488159) 0.03 10*3/uL 0.00-0.06 LYMPH x10^3 (test code = 731-0) 1.60 10*3/uL 1.32-3.29 MONO x10^3 (test code = 742-7) 0.66 10*3/uL 0.33-0.92 EOS x10^3 (test code = 711-2) 0.13 10*3/uL 0.03-0.39 BASO x10^3 (test code = 704-7) 0.04 10*3/uL 0.01-0.07 Lab Interpretation (test code = 71992-7) Abnormal [facility] W/AUTO DIFF WITH PLATELETS [ADDED] 2022-05-24 00:00:00* Test Item Value Reference Range Interpretation Comme nts WBC (test code = 1001) 6.9 K/UL RBC (test code = 1002) 2.81 M/UL HEMOGLOBIN (test code = 1003) 6.6 G/DL HEMATOCRIT (test code = 1004) 23.1 % MCV (test code = 1005) 82.2 fL MCH (test code = 1006) 23.5 PG MCHC (test code = 1007) 28.6 G/DL RDW (test code = 1038) 19.2 % NEUTROPHILS (test code = 1008) 60.8 % LYMPHOCYTES (test code = 1010) 26.2 % MONOCYTES (test code = 1011) 9.4 % EOSINOPHILS (test code = 1012) 2.7 % BASOPHILS (test code = 1013) 0.6 % IMMATURE GRANULOCYTES (test code = 1036) 0.3 % NUCLEATED RBCS (test code = 1065) 0.0 /100WBC'S PLATELET COUNT (test code = 1015) 426 K/UL ABSOLUTE NEUTROPHILS (test c ode = 1066) 4.21 K/UL ABSOLUTE LYMPHOCYTES (test c ode = 1067) 1.81 K/UL ABSOLUTE MONOCYTES (test cod e = 1068) 0.65 K/UL ABSOLUTE EOSINOPHILS (test c ode = 1040) 0.19 K/UL ABSOLUTE BASOPHILS (test cod e = 1069) 0.04 K/UL ABS IMMATURE GRANULOCYTES (t est code = 1020) 0.02 K/UL ABS NUCLEATED RBCS (test cod e = 53540) 0.00 K/UL COMMENTS (test code = 1016) (NOTE) Hang CuevasTSH REFLEX TO FREE T4 [ADDED]2022-05-24 00:00:00* Test Item Value Reference Range Interpretation Comme nts TSH REFLEX TO FREE T4 (test code = 2834) 2.400 UIU/ML Hang CuevasVITAMIN D, 25 [place] [ADDED]2022-05-24 00:00:00* Test Item Value Reference Range Interpretation Comme nts VITAMIN D, 25 [place] (test code = 4958) 39 NG/ML Hang CuevasIRON BINDING CAPACITY AND IRON AND % SATURATION [ADDED] 2022-05-24 00:00:00* Test Item Value Reference Range Interpretation Comme nts IRON, SERUM (test code = 2222) 19 UG/DL UNSATURATED IBC (test code = ) 434 UG/DL CALC TOTAL IBC (test code = 2076) 453 UG/DL CALC % IRON SAT (test code = 2078) 4 % Hang CuevasFERRITIN [ADDED]2022-05-24 00:00:00* Test Item Value Reference Range Interpretation Comme nts FERRITIN (test code = 2074) 8 NG/ML Hang CuevasTRANSFERRIN [ADDED]2022-05-24 00:00:00* Test Item Value Reference Range Interpretation Comme nts TRANSFERRIN (test code = 4936) 369 MG/DL Hang CuevasVITAMIN B 12 AND FOLIC ACID [ADDED]2022-05-24 00:00:00* Test Item Value Reference Range Interpretation Comme nts VITAMIN B-12 (test code = 2840) 434 PG/ML FOLIC ACID (test code = 2695) >20.0 UG/L Hang CuevasPrepare Packed RBC (in units), 1 [id number] 23:47:45* Test Item Value Reference Range Interpretation Comme nts Cross Match Result (test code = 4409) Compatible ISBT Blood Type Code (test code = 690691) Unit Blood Type (test code = 4410) A Neg Unit Number (test code = 4411) [id number] Blood Expiration Date & Time (test code = 470627) Status Information (test code = 4412) Issued Product Identification (test code = 4413) Red Blood Cells Product Code (test code = 4414) [id number] Performed at [facility] B Laboratory Services - [facility] Blood [address] [place], [place] [address]Toll Free: [phone] No. [id number] [facility] CenterCOM. METABOLIC PANEL (32639)2022-05-19 22:37:01* Test Item Value Reference Range Interpretation Comme nts NA (test code = 0173041462) 133 mmol/L 135-145 L K (test code = 2470727750) 3.6 mmol/L 3.5-5.0 CL (test code = 5737646546) 98 mmol/L 98-108 CO2 TOTAL (test code = 6766632517) 23 mmol/L 23-31 AGAP (test code = 0090000726) 2-16 BUN (test code = 7619278837) 13 mg/dL 7-23 GLUCOSE (test code = 0203643674) 206 mg/dL 70-110 H CREATININE (test code = 8765069704) 0.43 mg/dL 0.50-1.04 L TOTAL BILI (test code = 2839255687) 0.3 mg/dL 0.1-1.1 CALCIUM (test code = 7403340298) 8.9 mg/dL 8.6-10.6 T PROTEIN (test code = 7328147625) 6.8 g/dL 6.3-8.2 ALBUMIN (test code = 1872607429) 4.3 g/dL 3.5-5.0 ALK PHOS (test code = 0074297240) 46 U/L 34-122 ALTv (test code = 1742-6) 21 U/L 5-35 AST(SGOT) (test code = 2131500068) 27 U/L 13-40 eGFR (test code = 3603425295) mL/min/1.73m2 ELIER (test code = ELIER) Association of Glomerular Filtration Rate (GFR) and Staging of Kidney Disease* + --+ --+ ------+| GFR (mL/min/1.73 m2) ?| With Kidney Damage ?| ?Without Kidney Damage+ --------+ --------+ +| ?>90 ?| ?Stage one ?| ? Normal ?+ ---+ ---+ -------+| ?60-89 ?| ?Stage two ?| ? Decreased GFR ? + --+ --+ ------+| ?30-59 ?| ?Stage three ?| ? Stage three ? + --+ --+ ------+| ?15-29 ?| ?Stage four ? | ? Stage four ?+ ---+ ---+ -------+| ?<15 (or dialysis) ? ?| ?Stage five ? | ? Stage five ?+ ---+ ---+ -------+ *Each stage assumes the associated GFR level has been in effect for at least three months. ?Stages 1 to 5, with or without kidney disease, indicate chronic kidney disease. Notes: Determination of stages one and two (with eGFR >59mL/min/1.73 m2) requires estimation of kidney damage for at least three months as defined by structural or functional abnormalities of the kidney, manifested by either:Pathological abnormalities or Markers of kidney damage (including abnormalities in the composition of the blood or urine or abnormalities in imaging tests). Lab Interpretation (test code = 95278-5) Abnormal [facility] CenterType and Screen - ONCE [id number] 22:33:16* Test Item Value Reference Range Interpretation Comme nts ABO & RH (test code = 20) A Negative Performed at [facility] Laboratory [facility] Blood [address] [place], [place] [address]Toll Free: [phone] No. [id number] IAT (test code = 1185) Negative Performed at [facility] Laboratory [facility] Blood [address] [place], [place] [address]Toll Free: [phone] No. [id number] [facility] CenterACTIVATED PARTIAL THRMPLAS [id number] 21:56:36* Test Item Value Reference Range Interpretation Comme [facility] APTT Patient (test code = 3173-2) See_Comment [Automated message] The system which generated this result transmitted reference range: 23 - 38 Seconds. The reference range was not used to interpret this result as normal/abnormal. ELIER (test code = ELIER) The [facility] patient population mean normal value for aPTT is 30 seconds. Lab Interpretation (test code = 15210-4) Normal [facility] CenterPROTHROMBIN TIME / [id number] 21:54:33* Test Item Value Reference Range Interpretation Comme [facility] PROTIME PATIENT (test code = 5964-2) See_Comment [Automated messa ge] The system which generated this result transmitted reference range: 12.0 - 14.7 Seconds. The reference range was not used to interpret this result as normal/abnormal. INR (test code = 6301-6) Normal INR <1.1; Warfarin Therapeutic range 2.0 to 3.0 or 2.5 to 3.5, depending upon the indications. Lab Interpretation (test code = 26282-8) Normal [facility] CenterCBC WITH [id number] 21:52:16* Test Item Value Reference Range Interpretation Comme [facility] WBC (test code = 6690-2) See_Comment [Automated messa ge] The system which generated this result transmitted reference range: 4.30 - 11.10 10*3/?L. The reference range was not used to interpret this result as normal/abnormal. RBC (test code = 789-8) See_Comment L [Automated messa ge] The system which generated this result transmitted reference range: 3.93 - 5.25 10*6/?L. The reference range was not used to interpret this result as normal/abnormal. HGB (test code = 718-7) 6.0 g/dL 11.6-15.0 L HCT (test code = 4544-3) 19.1 % 35.7-45.2 L MCV (test code = 787-2) 75.2 fL 80.6-95.5 L MCH (test code = 785-6) 23.6 pg 25.9-32.8 L MCHC (test code = 786-4) 31.4 g/dL 31.6-35.1 L RDW-SD (test code = 14347-9) 51.9 fL 39.0-49.9 H RDW-CV (test code = 788-0) 19.0 % 12.0-15.5 H PLT (test code = 777-3) See_Comment H [Automated messa ge] The system which generated this result transmitted reference range: 166 - 358 10*3/?L. The reference range was not used to interpret this result as normal/abnormal. MPV (test code = 99628-5) 11.1 fL 9.5-12.9 NRBC/100 WBC (test code = 7705147382) See_Comment [Automated me ssage] The system which generated this result transmitted reference range: 0.0 - 10.0 /100 WBCs. The reference range was not used to interpret this result as normal/abnormal. NRBC x10^3 (test code = 5426686951) See_Comment [Automated messa ge] The system which generated this result transmitted reference range: 10*3/?L. The reference range was not used to interpret this result as normal/abnormal. GRAN MAT (NEUT) % (test code = 770-8) 55.6 % IMM GRAN % (test code = 1171662942) 0.40 % LYMPH % (test code = 736-9) 31.5 % MONO % (test code = 5905-5) 11.5 % EOS % (test code = 713-8) 0.3 % BASO % (test code = 706-2) 0.7 % GRAN MAT x10^3(ANC) (test code = 3104137954) 5.26 10*3/uL 1.88-7.09 IMM GRAN x10^3 (test code = 8730253820) 0.04 10*3/uL 0.00-0.06 LYMPH x10^3 (test code = 731-0) 2.99 10*3/uL 1.32-3.29 MONO x10^3 (test code = 742-7) 1.09 10*3/uL 0.33-0.92 H EOS x10^3 (test code = 711-2) 0.03 10*3/uL 0.03-0.39 BASO x10^3 (test code = 704-7) 0.07 10*3/uL 0.01-0.07 Lab Interpretation (test code = 32655-3) Abnormal [facility] CenterPOVA GLUCOSE (AUTOMATED)2022-05-19 21:16:26* Test Item Value Reference Range Interpretation Comme nts POCT GLU (test code = 5684683078) 224 mg/dL 70-110 H Lab Interpretation (test cod e = 80971-6) Abnormal [facility] CenterBREAST ULTRASOUND [id number] 11:05:55 Name: Juanita : 1975 Sex: F - DIAG MAMM LEFT PADDY CAD DIGITALUNILATERAL LEFT DIGITAL DIAGNOSTIC MAMMOGRAM 3D/2D WITH CAD: 10/27/2021LINICAL: Abnormal Mammogram. Digital breast tomosynthesis was performed in addition to routine CC and MLO views. Current mammographic images were evaluated by [facility] ImageCheQVPN CAD (computer-aided detection) software. Comparison is made to exam dated 08/04/2021 mammogram - [facility]. The tissue of the left breast isheterogeneously dense. This may lower the sensitivity of mammography. There are benign appearing desire cifications in the left breast. No suspicious mass, architectural distortion, malignant type calcification, or lymph node abnormality detected. The previously described abnormality is not seen on additional views which is consistent with possible overlapping glandular tissue. INCOMPLETE: ADDITIONALIMAGING EVALUATION NEEDEDNo mammographic evidence of malignancy. Given dense breast tissue, proceed to same day ultrasound. - BREAST ULTRASOUND LEFTULTRASOUND OF LEFT BREAST AND LEFT AXILLA: 10/27/2021omparison is made to exam dated 08/04/2021 mammogram - [facility]. Color flow, real-time, and Doppler ultrasound of the left breast and axilla were performed. Bermudez scale images of thereal-time examination were reviewed. There is an isoechoic, circumscribed, parallel mass in the left breast at 12 o'clock, 4 cm from the nipple, measuring 1.3 x 0.7 x 1.0 cm. No other abnormalities were seen sonographically in the left breast or the left axilla. IMPRESSION: PROBABLY BENIGN - FOLLOW-UP RECOMMENDEDProbably bening mass in the left breast at 12 o'clock. A follow-up ultrasound in 6 months is recommended to demonstrate stability. Addison Rose M.D. et/:10/27/2021 11:05:55 [employer]: Radha BRAGA, [facility]-FWletter sent: Short Term Follow Up Mammogram BI-RADS: 0 Incomplete: Additional Imaging Evaluation Needed Ultrasound BI-RADS: 3 Probably benignDIAG MAMM LEFT PADDY CAD [id number] 11:05:55 Name: Juanita : 1975 Sex: F - DIAG MAMM LEFT PADDY CAD DIGITALUNILATERAL LEFT DIGITAL DIAGNOSTIC MAMMOGRAM 3D/2D WITH CAD: 4/6/2022CLINICAL: Abnormal Mammogram. Digital breast tomosynthesis was performed in addition to routine CC and MLO views. Current mammographic images were evaluated by [facility] [employer] CAD (computer-aided detection) software. Comparison is made to exam dated 08/04/2021 mammogram - [facility]. The tissue of the left breast isheterogeneously dense. This may lower the sensitivity of mammography. There are benign appearing desire cifications in the left breast. No suspicious mass, architectural distortion, malignant type calcification, or lymph node abnormality detected. The previously described abnormality is not seen on additional views which is consistent with possible overlapping glandular tissue. INCOMPLETE: ADDITIONALIMAGING EVALUATION NEEDEDNo mammographic evidence of malignancy. Given dense breast tissue, proceed to same day ultrasound. - BREAST ULTRASOUND LEFTULTRASOUND OF LEFT BREAST AND LEFT AXILLA: 10/27/2021omparison is made to exam dated 08/04/2021 mammogram - [facility]. Color flow, real-time, and Doppler ultrasound of the left breast and axilla were performed. Bermudez scale images of thereal-time examination were reviewed. There is an isoechoic, circumscribed, parallel mass in the left breast at 12 o'clock, 4 cm from the nipple, measuring 1.3 x 0.7 x 1.0 cm. No other abnormalities were seen sonographically in the left breast or the left axilla. IMPRESSION: PROBABLY BENIGN - FOLLOW-UP RECOMMENDEDProbably bening mass in the left breast at 12 o'clock. A follow-up ultrasound in 6 months is recommended to demonstrate stability. Addison Rose M.D. et/:10/27/2021 11:05:55 [employer]: Radha BRAGA, [facility]-FWletter sent: Short Term Follow Up Mammogram BI-RADS: 0 Incomplete: Additional Imaging Evaluation Needed Ultrasound BI-RADS: 3 Probably benignSCR MAMM BILATERAL PADDY CAD [id number] 07:43:36 Name: Juanita : 1975 Sex: F - SCR MAMM BILATERAL PADDY CAD DIGITALBILATERAL DIGITAL SCREENING MAMMOGRAM 3D/2D WITH CAD: 08/04/2021LINICAL: Asymptomatic. Digital breast tomosynthesis was performed in addition to routine CC and MLO views. Current mammographic images wereevaluated by [facility] [employer] CAD (computer-aided detection) software. No prior exams were available for comparison. The tissue of both breasts is heterogeneously dense. This may lower the sensitivity of mammography. There is a possible asymmetry in the left breast posterior depth central to the nipple seen on the craniocaudal view only. No other significant masses, calcifications, or other findings are seen in either breast. IMPRESSION: INCOMPLETE: ADDITIONAL IMAGING EVALUATION NEEDEDThe questionable asymmetry seen best on the left XCCL view is indeterminate. 3D imaging and spot compression views as well as a possible ultrasound are recommended. Addison Rose M.D. et/:08/05/2021 07:43:36 [employer]: Leticia Vincent MM, [facility] sent: Additional Imaging Mammogram BI-RADS: 0 Incomplete: Additional Imaging Evaluation Needed Notes Date/Time Note Provider Source Hang Ochoa [facility]2023-08-08 02:43:40 Pt given printed and verbal discharge instructions regarding fatigue, hypomagnesemia, and uncontrolled type 2 diabetes mellitus with hyperglycemia Prescriptions provided Pt verbalized understanding of instructions, pt awake alert oriented, resp reg unlabored, skin w/d,color appropriate for race, moves all ext well,pt encouraged to follow up with pcp Advised to seek medical attention for new/prolonged/worsening of symptoms No adverse reaction to meds given in ER noted upon discharge PIV d'cd, dressing to site, catheter in tact. Awake, alert oriented, resp reg unlabored, skin w/d, pt leaving amb with steady gait, in no apparent distress onna Melissa [id number] 23:39:47 Patient arrived ambulatory with daughter c/o of weakness and dizziness that started 3 days ago withsome nausea. Denies any vomiting. Nusrat Cunningham [id number] 23:28:00Associated Order(s): EKG-12 Lead ROUTINE ONCE Pre-Procedure Diagnose(s): Fatigue, unspecified type Post-Procedure Diagnose(s): Fatigue, unspecified type [facility] Emergency Department Note Patient Name: Juanita Leon Date of : 1975 48 year old female Treatment Room: Room/bed info not found Primary Care Physician: Analisa Lewis Patient Escorted by: Family [5] Mode of Arrival: Personal means [1] EMS Treatment Prior to ED Arrival: [employer] treatment: None Travel and Exposure Screening: Symptoms Does patient have any of these symptoms?: (not recorded) Exposure Screening Has patient had contact with someone with a communicable disease in the last month?: (not recorded) Diseases exposed to:: (not recorded) Is Patient ?: (not recorded) Exposure Date: (not recorded) Chief Complaint: Chief Complaint Patient presents with Weakness Dizziness History of Present Illness: Juanita Leon is a 48 year old female who presents to the ED with daughter for evaluation of generalized fatigue X 3 days. Pt reports light-headedness, fatigue and general feeling of unwell. Has occasional palpitations. Denies any further vaginal bleeding. LNMP Adelfo 4 and reportedly normal. Has nausea. No vomiting. Deneis any URI /UTI symptoms History provided by: Medical records and patient interpreter deaf used: Yes Weakness Location: Generalized Severity: Moderate Onset quality: Gradual Duration: 3 days Timing: Sporadic Chronicity: New Associated symptoms: fatigue and nausea Associated symptoms: no chest pain, no congestion, no cough, no diarrhea, no ear pain, no fever, noheadaches, no loss of consciousness, no myalgias, no rash, no rhinorrhea, no shortness of breath, no sore throat, no vomiting and no wheezing Past Medical History/Immunizations: Past Medical History: Diagnosis Date Abnormal uterine bleeding 04/23/2022 Anemia 12/2021 Asthma Diabetes mellitus 2020 on meds Fibroid, uterine 06/28/2022 Transfusion history Tetanus received in last 5 years: No Childhood immunizations: Up-to-date Allergies: No Known Allergies Past Social History: Tobacco Use Never smoked or used smokeless tobacco. Alcohol Use Not Currently. Drug Use Not Currently. Sexual Activity Sexually active; Partners: Male; Control/Protection: Pill. Comments: Last intercourse: 1+ year ago Past Surgical History: Past Surgical History: Procedure Laterality Date HYSTEROSCOPY WITH DILATATION AND CURETTAGE (SHX) N/A 09/14/2022 Surgeon: Bryan Palmer MD; Location: [facility] MYOMECTOMY HYSTEROSCOPY (SHX) N/A 09/14/2022 Surgeon: Bryan Palmer MD; Location: [facility] Review of Systems: Review of Systems Constitutional: Positive for fatigue. Negative for fever. HENT: Negative. Negative for congestion, ear pain, rhinorrhea and sore throat. Eyes: Negative. Respiratory: Negative. Negative for cough, shortness of breath and wheezing. Breasts: Negative. Cardiovascular: Negative. Negative for chest pain. Gastrointestinal: Positive for nausea. Negative for abdominal distention, anal bleeding, constipation, diarrhea and vomiting. Genitourinary: Negative. Musculoskeletal: Negative. Negative for myalgias. Skin: Negative. Negative for rash. Neurological: Positive for light-headedness. Negative for loss of consciousness and headaches. Psychiatric/Behavioral: Negative. All other systems reviewed and are negative. Endocrine: Endocrine negative Physical Exam: ED Triage Vitals [02/27/23 2340] Weight 59 kg (130 lb) Actual or estimated Estimated by patient/family report Height 1.549 m (5' 1") BP 138/68 Pulse 81 Resp 18 Temp 36.7 ?C (98 ?F) Temp source Oral SpO2 97 % Measured on Room air Physical Exam Vitals and nursing note reviewed. Constitutional: General: She is not in acute distress. Appearance: Normal appearance. She is well-developed and normal weight. She is not ill-appearing, toxic-appearing or diaphoretic. HENT: Head: Normocephalic and atraumatic. Right Ear: External ear normal. Left Ear: External ear normal. Nose: Nose normal. Mouth/Throat: Mouth: Mucous membranes are moist. Pharynx: Oropharynx is clear. No oropharyngeal exudate. Eyes: General: No scleral icterus. Right eye: No discharge. Left eye: No discharge. Extraocular Movements: Extraocular movements intact. Conjunctiva/sclera: Conjunctivae normal. Pupils: Pupils are equal, round, and reactive to light. Neck: Thyroid: No thyromegaly. Cardiovascular: Rate and Rhythm: Normal rate and regular rhythm. Pulses: Normal pulses. Heart sounds: Normal heart sounds. No murmur heard. Pulmonary: Effort: Pulmonary effort is normal. No respiratory distress. Breath sounds: Normal breath sounds. No stridor. No wheezing or rales. Chest: Chest wall: No tenderness. Abdominal: General: Bowel sounds are normal. There is no distension. Palpations: Abdomen is soft. Tenderness: There is no abdominal tenderness. There is no guarding or rebound. Musculoskeletal: General: No swelling, tenderness, deformity or signs of injury. Normal range of motion. Cervical back: Normal range of motion and neck supple. No rigidity or tenderness. Lymphadenopathy: Cervical: No cervical adenopathy. Skin: General: Skin is warm and dry. Capillary Refill: Capillary refill takes less than 2 seconds. Coloration: Skin is not jaundiced or pale. Findings: No bruising, erythema, lesion or rash. Neurological: General: No focal deficit present. Mental Status: She is alert and oriented to person, place, and time. Cranial Nerves: No cranial nerve deficit. Sensory: No sensory deficit. Motor: No weakness or abnormal muscle tone. Coordination: Coordination normal. Gait: Gait normal. Deep Tendon Reflexes: Reflexes normal. Psychiatric: Behavior: Behavior normal. Thought Content: Thought content normal. Judgment: Judgment normal. Radiology: No orders to display Lab Results: Lab Results COMP. METABOLIC PANEL (55674) - Abnormal Result Value Ref Range NA 136 135 - 145 mmol/L K 3.5 3.5 - 5.0 mmol/L CL 99 98 - 108 mmol/L CO2 TOTAL 26 23 - 31 mmol/L AGAP 11 2 - 16 BUN 11 7 - 23 mg/dL GLUCOSE 230 (*) 70 - 110 mg/dL CREATININE 0.39 (*) 0.50 - 1.04 mg/dL TOTAL BILI 0.5 0.1 - 1.1 mg/dL CALCIUM 9.1 8.6 - 10.6 mg/dL T PROTEIN 7.7 6.3 - 8.2 g/dL ALBUMIN 4.2 3.5 - 5.0 g/dL ALK PHOS 45 34 - 122 U/L ALTv 18 5 - 35 U/L AST(SGOT) 27 13 - 40 U/L eGFR 174.0 mL/min/1.73m2 URINALYSIS - Abnormal APPEARANCE Clear Clear COLOR Yellow Yellow PH 5.0 4.8 - 8.0 SP GRAVITY 1.031 (*) 1.003 - 1.030 GLU U QUAL 500 mg/dL (*) Normal BLOOD 1+ (*) Negative KETONES Negative Negative PROTEIN Negative Negative UROBILIN Normal Normal BILIRUBIN Negative Negative NITRITE Negative Negative LEUK LRAA Negative Negative RBC/HPF 1 0 - 3 HPF WBC/HPF <1 0 - 5 HPF BACTERIA Few (*) Negative MUCOUS Slight (*) Negative LPF SQ EPITH 1 HPF MAGNESIUM - Abnormal MAGNESIUM 1.5 (*) 1.7 - 2.4 mg/dL TROPONIN I - Normal TROPONIN I 0.004 <=0.034 ng/mL THYROID STIMULATING HORMONE - Normal TSH 0.86 0.45 - 4.70 mIU/L CBC WITH DIFF WBC 7.33 4.30 - 11.10 10*3/?L RBC 4.26 3.93 - 5.25 10*6/?L HGB 13.5 11.6 - 15.0 g/dL HCT 39.7 35.7 - 45.2 % MCV 93.2 80.6 - 95.5 fL MCH 31.7 25.9 - 32.8 pg MCHC 34.0 31.6 - 35.1 g/dL RDW-SD 41.6 39.0 - 49.9 fL RDW-CV 12.2 12.0 - 15.5 % PLT 280 166 - 358 10*3/?L MPV 12.1 9.5 - 12.9 fL NRBC/100 WBC 0.0 0.0 - 10.0 /100 WBCs NRBC x10^3 <0.01 10*3/?L GRAN MAT (NEUT) % 61.9 % IMM GRAN % 0.30 % LYMPH % 25.9 % MONO % 9.4 % EOS % 2.0 % BASO % 0.5 % GRAN MAT x10^3(ANC) 4.53 1.88 - 7.09 10*3/uL IMM GRAN x10^3 <0.03 0.00 - 0.06 10*3/uL LYMPH x10^3 1.90 1.32 - 3.29 10*3/uL MONO x10^3 0.69 0.33 - 0.92 10*3/uL EOS x10^3 0.15 0.03 - 0.39 10*3/uL BASO x10^3 0.04 0.01 - 0.07 10*3/uL Orders and Treatments: Orders Placed This Encounter Procedures CBC WITH DIFF COMP. METABOLIC PANEL (16606) TROPONIN I URINALYSIS THYROID STIMULATING HORMONE MAGNESIUM Orders Placed This Encounter Medications magnesium oxide (MAG-OX 400) tablet 800 mg First Provider Eval: ED Events Date/Time Event User Comments 02/27/232329 Medical Screening Begins COCO TRINIDAD MD -- 02/27/232329 First Provider Evaluation COCO TRINIDAD MD -- No notes of EC Admission Criteria type on file. ED COURSE Diagnosis/Impression as of 02/28/23 0225 Fatigue, unspecified type Hypomagnesemia Uncontrolled type 2 diabetes mellitus with hyperglycemia, with long-term current use of insulin Procedures: EKG-12 Lead ROUTINE ONCE Date/Time: 02/28/2023 12:30 AM Performed by: Coco Trinidad MD Authorized by: Coco Trinidad MD ECG reviewed by ED Physician in the absence of a motor tune up specialist: yes Previous ECG: Previous ECG: Compared to current Similarity: No change Interpretation: Interpretation: normal Rate: ECG rate: 83 ECG rate assessment: normal Rhythm: Rhythm: sinus rhythm Ectopy: Ectopy: none QRS: QRS axis: Normal QRS intervals: Normal QRS conduction: normal ST segments: ST segments: Normal T waves: T waves: normal Q waves: Abnormal Q-waves: not present MDM: Medical Decision Making Juanita Leon is a 48 year old femaleh wo presents to the ED for evaluation of fatigue X 3 days Problems Addressed: Fatigue, unspecified type: chronic illness or injury Details: Unknown primary etiology Hypomagnesemia: chronic illness or injury with exacerbation, progression, or side effects of treatment Details: Magnesium replenished in the ED Uncontrolled type 2 diabetes mellitus with hyperglycemia, with long-term current use of insulin: chronic illness or injury Details: Encouraged ADA Diet, staying hydrated and foods rich in magnesium Amount and/or Complexity of Data Reviewed External Data Reviewed: notes. Labs: ordered. Decision-making details documented in ED Course. ECG/medicine tests: independent interpretation performed. Details: EKG Interpreted by me as: NSR Rate 83 BPM [address] axis No ST elevation or depression No acute changes Compared to previous EKG, No chnages Risk OTC drugs. Flowsheet Documentation: Scoring Tools: No data recorded Disposition/Condition: ED Disposition ED Disposition Disch - Home Condition Stable Comment -- Discharge Medications: Patient's Medications START taking these medications No medications on file CONTINUE taking these medications which have NOT CHANGED ACETAMINOPHEN (TYLENOL) 325 MG TABLET Take 2 tablets by mouth every 6 (six) hours as needed for Pain (scale 4-6) or Pain (scale 1-3). FERROUS SULFATE 325 MG (65 MG IRON) TABLET Take 1 tablet by mouth 3 (three) times daily with meals. IBUPROFEN 600 MG TABLET Take 1 tablet by mouth every 6 (six) hours as needed for Pain (scale 1-3) or Pain (scale 4-6). METRONIDAZOLE 500 MG TABLET Take 1 tablet by mouth 2 (two) times daily. START taking Modified Medications as Prescribed No medications on file STOP taking these medications No medications on file Follow-up: Contact information for follow-up Mari Penny Specialty: MANAGER PROFESSIONAL DEVELOPMENT-FAMILY Relationship: PCP - General [address] [facility] [id number] Electronically signed by: Coco Trinidad MD 02/28/23223 Coco Trinidad MD 02/28/23224 [facility]
[2024-10-06 04:33] LABS: Absolute Eosinophils 0.2 K/uL (0-0.5); Absolute Monocytes 0.7 K/uL (0.1-1.3); Absolute Neutrophil 4.5 K/uL (1.8-8.0); Basophils % 0.6 % (0-1.3); Eosinophils % 3.2 % (0-4.4); Hemoglobin 13.2 g/dL (12.0-15.0); Lymphocytes % 26.2 % (15.3-44.8); MCH 31.2 pg (27.0-35.0); MCHC 33.9 g/dL (32.0-36.0); MPV 10.7 fL (7.6-11.3); Monocytes % 9.7 % (3.3-12.3); Neutrophils % 60.3 % (41.7-73.7); Nucleated Red Blood Cells % 0.1 % (0-0); Platelets 251 thou/uL (152-406); RBC Red Blood Cell Count 4.23 M/uL (3.86-4.86); Red Cell Distribution Width 12.7 % (12.1-15.2)
[2024-10-06] MEDS ORDERED: ACETAMINOPHEN 500 MG TAB ONE (04:36)
[2024-10-06 04:48] LABS: Anion Gap 10.4 mEq/L (5.0-15.0); BUN Blood Urea Nitrogen 17 mg/dL (7-18); Bicarbonate 27 mEq/L (21-32); Glomerular Filtration Rate 108 ml/min (=/>90); Glucose Level 172 mg/dL (74-106); Potassium 3.4 mEq/L (3.5-5.1); Sodium Level 134 mEq/L (136-145)
[2024-10-06 04:51] LABS: Troponin High Sensitivity < 3.0 pg/mL (<58.9)
--- NOTE | 2024-10-06 06:23 | ER ---
Nurse's Notes [facility] Name: Juanita Leon Age: 49 yrs Sex: Female : 1975 Arrival Date: 10/06/2024 Time: 03:01 Bed 20 Private MD: Diagnosis: Costochondritis Presentation: 10/06 03:18 Chief complaint: Patient states: right sided CP X4 days with nausea and dizziness. lg3 Coronavirus screen: Client denies travel out of the [place] in the last 14 days. At this time, the client does not indicate any symptoms associated with coronavirus-19. Ebola Screen: No symptoms or risks identified at this time. Initial Sepsis Screen: Does the patient meet any 2 criteria? No. Patient's initial sepsis screen is negative. Does the patient have a suspected source of infection? No. Patient's initial sepsis screen is negative. Risk Assessment: Do you want to hurt yourself or someone else? Patient reports no desire to harm self or others. Onset of symptoms is unknown. 03:18 Method Of Arrival: Ambulatory lg3 03:18 Acuity: KYA 3 lg3 Triage Assessment: 03:21 General: Appears in no apparent distress. comfortable, Behavior is calm, cooperative. lg3 Pain: Complains of pain in anterior aspect of right upper chest and right breast Pain does not radiate. EENT: No deficits noted. No signs and/or symptoms were reported regarding the EENT system. Neuro: No deficits noted. Pollock Agitation-Sedation Scale (RASS): 0 - Alert and Calm Level of Consciousness is awake, alert, obeys commands, Oriented to person, place, time, situation. Cardiovascular: Reports chest pain, nausea, Heart tones S1 S2 present Capillary refill < 3 seconds Clubbing of nail beds is absent JVD is absent Patient's skin is warm and dry. Rhythm is sinus rhythm. Respiratory: No deficits noted. Reports pain with cough Airway is patent Respiratory effort is even, unlabored, Respiratory pattern is regular, symmetrical, Breath sounds are clear bilaterally. GI: No deficits noted. Abdomen is flat, non-distended, Reports nausea. : No signs and/or symptoms were reported regarding the genitourinary system. Derm: No deficits noted. No signs and/or symptoms reported regarding the dermatologic system. Skin is intact, is healthy with good turgor, Skin is dry, Skin is normal, Skin temperature is warm. Musculoskeletal: No deficits noted. Circulation, motion, and sensation intact. Range of motion: intact in all extremities. 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 - Infectious Disease History:: Denies. - Social history:: Smoking status: Patient denies any tobacco usage or history of. Patient/guardian denies using alcohol, street drugs. Screenin:27 [facility] ED Fall Risk Assessment (Adult) History of falling in the last 3 months, lg3 including since admission No falls in past 3 months (0 pts) Confusion or Disorientation No (0 pts) Intoxicated or Sedated No (0 pts) Impaired Gait No (0 pts) Mobility Assist Device Used No (0 pt) Altered Elimination No (0 pt) Score/Fall Risk Level 0 - 2 = Low Risk Oriented to surroundings, Maintained a safe environment, Educated pt \T\ family on fall prevention, incl call for assistance when getting out of bed, Assessed \T\ reinforced patient's understanding of fall precautions. Abuse screen: Denies threats or abuse. Denies injuries from another. Nutritional screening: No deficits noted. Tuberculosis screening: No symptoms or risk factors identified. Assessment: 03:27 General: see triage assessment. Pain: Pain began 4 days ago. lg3 06:06 Reassessment: assumed care of patient at this time. General: Appears in no apparent al5 distress. comfortable, Behavior is calm, cooperative. Pain: Complains of pain in right breast. Neuro: Level of Consciousness is awake, alert, obeys commands, Oriented to person, place, time, situation. Cardiovascular: Capillary refill < 3 seconds Patient's skin is warm and dry. Rhythm is sinus rhythm. Respiratory: Airway is patent Respiratory effort is even, unlabored, Respiratory pattern is regular, symmetrical. GI: Reports nausea. : No signs and/or symptoms were reported regarding the genitourinary system. EENT: No signs and/or symptoms were reported regarding the EENT system. Derm: Skin is intact, is healthy with good turgor, Skin is pink, warm \T\ dry. normal. Musculoskeletal: No signs and/or symptoms reported regarding the musculoskeletal system. 06:50 Reassessment: Patient appears in no apparent distress at this time. Patient and/or al5 family updated on plan of care and expected duration. Pain level reassessed. Patient is alert, oriented x 3, equal unlabored respirations, skin warm/dry/pink. Patient states feeling better. Vital Signs: 03:18 BP 144 / 93; Pulse 84; Resp 16 S; Temp 98.4(O); Pulse Ox 98% on R/A; Weight 61.23 kg lg3 (R); Height 5 ft. 1 in. ; Pain 8/10; 06:09 BP 126 / 83; Pulse 73; Resp 18; Pulse Ox 100% ; al5 06:15 BP 133 / 83; Pulse 67; Resp 16; Pulse Ox 100% ; al5 06:30 BP 116 / 74; Pulse 66; Resp 14; Pulse Ox 99% on R/A; al5 06:45 BP 109 / 75; Pulse 66; Resp 13; Pulse Ox 99% ; al5 03:18 Body Mass Index 25.51 (61.23 kg, 154.94 cm) lg3 03:18 Pain Scale: Adult lg3 ED Course: 03:05 Patient arrived in ED. jj6 03:15 Stan Neumann MD is Attending Physician. ec2 03:20 Triage completed. lg3 03:21 Arm band placed on right wrist. lg3 03:27 Patient has correct armband on for positive identification. lg3 03:27 Initial lab(s) drawn, by ED staff, sent to lab. EKG done, by ED staff, reviewed by cristhian Neumann MD. Inserted saline lock: 20 gauge in left antecubital area, using aseptic technique. Blood collected. Flushed with 10 mL NS. Patient maintains SpO2 saturation greater than 95% on room air. 03:29 Basic Metabolic Panel Sent. lg3 03:29 CBC with Diff Sent. lg3 03:29 Troponin HS Sent. lg3 03:38 Test, Serum Sent. vk 04:22 XRAY Chest (1 view) In Process Unspecified. EDMS 06:06 Langhorst, Noris, RN is Primary Nurse. al5 06:08 Provided Education on: plan of care. Client placed on continuous cardiac and pulse al5 oximetry monitoring. NIBP monitoring applied. subwarehouse supervisor on. 06:08 No provider procedures requiring assistance completed. al5 06:56 IV discontinued, intact, bleeding controlled, No redness/swelling at site. Pressure al5 dressing applied. Administered Medications: 04:40 Drug: Acetaminophen PO 1000 mg PO once Route: PO; cp4 06:56 Follow up: Response: No adverse reaction; Pain is decreased al5 Medication: 03:27 VIS not applicable for this client. lg3 Outcome: 06:23 Discharge ordered by MD. ec2 06:56 Discharged to home ambulatory, with significant other, al5 06:56 Condition: good 06:56 Discharge instructions given to patient, significant other, Instructed on discharge instructions, follow up and referral plans. medication usage, Demonstrated understanding of instructions, follow-up care, medications, Prescriptions given X 1, 06:56 Patient left the ED. al5 Signatures: Dispatcher [employer] Selam De Paz RN RN lg3 Evie Aguilar6 Stan Neumann MD MD ec2 Yen Turner cp4 Eli Rollins Amanda, MEET RN al5 Corrections: (The following items were deleted from the chart) 03:25 03:21 Allergies: metformin; lg3 lg3 03:25 03:21 PMHx: Hypercholesterolemia; lg3 lg3
--- NOTE | 2024-10-06 06:23 | EDPHYS ---
Physician Documentation [facility] Name: Juanita Leon Age: 49 yrs Sex: Female : 1975 Arrival Date: 10/06/2024 Time: 03:01 Bed 20 Private MD: ED Physician Stan Neumann HPI: 10/06 03:29 This 49 yrs old Female presents to ER via Ambulatory with complaints of Chest ec2 Pain. 03:29 Patient arrives today for evaluation of reproducible chest wall pain. States that the ec2 pain is worsened over the past day. Patient reports no specific injury or trauma. Reports pain is worsened with movement and pressing on the area. History of asthma, diabetes, no reported shortness of breath.. [employer]IVE: 03:21 LMP 09/10/2024, unknown lg3 Historical: - Allergies: 03:21 No Known Allergies; lg3 - Home Meds: 03:21 Metformin Oral [Active]; Albuterol Inhl [Active]; lg3 - PMHx: 03:21 Asthma; diabetes mellitus; lg3 - PSHx: 03:21 uterine tumor removal (Hypercholesterolemia); lg3 - Immunization history:: Adult Immunizations up to date. - Infectious Disease History:: Denies. - Social history:: Smoking status: Patient denies any tobacco usage or history of. Patient/guardian denies using alcohol, street drugs. ROS: 03:29 Constitutional: as per hpi ec2 Exam: 03:29 Constitutional: GEN: NAD Head: atraumatic Eyes: EOMI Ears: External ears are ec2 normal. CV: regular rate LUNGS: no respiratory distress ABD: non-distended SKIN: no evidence of rashes MSK: no evidence of trauma. Under nurse supervision, right upper chest wall is minimally tender to palpation, no deformities or crepitus appreciated. Vital Signs: 03:18 BP 144 / 93; Pulse 84; Resp 16 S; Temp 98.4(O); Pulse Ox 98% on R/A; Weight 61.23 kg lg3 (R); Height 5 ft. 1 in. ; Pain 8/10; 06:09 BP 126 / 83; Pulse 73; Resp 18; Pulse Ox 100% ; al5 06:15 BP 133 / 83; Pulse 67; Resp 16; Pulse Ox 100% ; al5 06:30 BP 116 / 74; Pulse 66; Resp 14; Pulse Ox 99% on R/A; al5 06:45 BP 109 / 75; Pulse 66; Resp 13; Pulse Ox 99% ; al5 03:18 Body Mass Index 25.51 (61.23 kg, 154.94 cm) lg3 03:18 Pain Scale: Adult lg3 MDM: 03:30 Data reviewed: vital signs, nurses notes. ec2 03:30 ED course: Patient arrives today for chest wall pain. Examination yields well-appearing ec2 nontoxic individual who has reproducible chest wall TTP. EKG obtained, independently reviewed and interpreted by me, shows normal sinus rhythm, rate of 79, no acute ST segment elevations, normals are nonactionable. Will obtain lab work, chest x-ray as well. DDx includes ACS, PE, costochondritis. I suspect costochondritis given reproducibility and reassuring EKG. 03:37 Medical Screening Exam initiated ec2 06:22 ED course: Metabolic profile shows slight hypokalemia. CBC is reassuring. Troponin ec2 within normal ranges, testing negative. Chest x-ray shows no acute intrathoracic process.. 10/06 03:15 Order name: Basic Metabolic Panel; Complete Time: 06:22 ec2 10/06 03:15 Order name: CBC with Diff; Complete Time: 06:22 ec2 10/06 03:15 Order name: Troponin HS; Complete Time: 06:22 ec2 10/06 03:30 Order name: Test, Serum; Complete Time: 06:22 ec2 10/06 03:15 Order name: XRAY Chest (1 view); Complete Time: 06:56 ec2 10/06 03:15 Order name: Cardiac monitoring; Complete Time: 06:09 ec2 10/06 03:15 Order name: EKG - Nurse/Tech; Complete Time: 03:29 ec2 10/06 03:15 Order name: IV Saline Lock; Complete Time: 03:29 ec2 10/06 03:15 Order name: Labs collected and sent; Complete Time: 03:29 ec2 10/06 03:15 Order name: O2 Per Protocol; Complete Time: 03:29 ec2 10/06 03:15 Order name: O2 Sat Monitoring; Complete Time: 03:29 ec2 Administered Medications: 04:40 Drug: Acetaminophen PO 1000 mg PO once Route: PO; cp4 06:56 Follow up: Response: No adverse reaction; Pain is decreased al5 Disposition Summary: 10/06/24 06:23 Discharge Ordered Notes: Location: Home ec2 Condition: Stable ec2 Diagnosis - Costochondritis ec2 Followup: ec2 - With: Private Physician - When: - Reason: Re-evaluation by your physician Discharge Instructions: - Discharge Summary Sheet ec2 - Costochondritis, [id number] ec2 Forms: - Medication Reconciliation Form ec2 - Antibiotic Education ec2 - Prescription Opioid Use ec2 - Patient Portal Instructions ec2 - Leadership Thank You Letter ec2 Prescriptions: - methocarbamol 500 mg Oral tablet - take 1 tablet ORAL route 4 times per day; 10 tablet; Refills: 0, Product ec2 Selection Permitted Signatures: Dispatcher [employer] Selam De Paz RN RN lg3 Stan Neumann MD MD ec2 Yen Turner cp4 Noris Mccall RN al5 Corrections: (The following items were deleted from the chart) 03:16 03:16 BASIC METABOLIC PANEL+C.LAB.BRZ ordered. EDMS EDMS 03:16 03:16 CBC+H.LAB.BRZ ordered. EDMS EDMS 03:16 03:16 Troponin High Sensitivity+C.LAB.BRZ ordered. EDMS EDMS 03:16 03:16 Chest Single View+RAD.RAD.BRZ ordered. EDMS EDMS 03:25 03:21 Allergies: metformin; lg3 lg3 03:25 03:21 PMHx: Hypercholesterolemia; lg3 lg3 06:06 03:31 Test, Urine+UC.LAB.BRZ ordered. EDMS EDMS
--- NOTE | 2024-10-06 06:35 | RAD REPORT ---
CLINICAL HISTORY: Chest pain. COMPARISON: None. TECHNIQUE: XR CHEST 1 VIEW 10/06/2024 3:15 AM CDT FINDINGS: Cardiac silhouette is normal in size. Lungs are clear without consolidation, atelectasis, mass or emiliana ma. There is no pleural effusion. There is no pneumothorax. There are no acute osseous findings. IMPRESSION: Clear lungs. Electronically signed by: Abraham Amezquita MD 10/06/2024 05:40 AM CDT RP Due to temporary technical issues with the PACS/EPV SOLAR reporting system, reports are being marcelino d by the in-house radiologist without review as a courtesy to ensure prompt reporting. The interpreting radiologist is fully responsible for the content of the report. Transcribed Date/Time: 10/06/2024 6:35 AM
[2024-10-06 07:38] VITALS: TEMP 98.4
[2024-10-06 07:41] VITALS: O2SAT 99
[2024-10-06 07:42] VITALS: BP 109/75
== END 2024-10-06 06:56 | disposition home or self-care (01) ==
LOC: ER 03:01
DX: M94.0 Chondrocostal junction syndrome [Tietze] (principal); E11.9 Type 2 diabetes mellitus without complications
CPT/HCPCS: 36415; 71045; 80048; 84484; 84703; 85025; 93005; 99285